=== PATIENT | female | born 1980 | race Caucasian/White ===

== ENCOUNTER 2020-04-06 14:27 | Observation (INO) | payer MEDICAID, SELFPAY ==
[2020-04-06 14:29] VITALS: BP 140/88; PULSE 92; TEMP 36.4; O2SAT 100
--- NOTE | 2020-04-06 14:48 | ED.GENADUL_ITS ---
Discharge Plan Disposition Patient Disposition: [facility] INPATIENT Condition: Stable Discharge Details Clinical Impression: Schizophrenia, Suicidal ideation Primary Care Provider: Lexi Sahu ED Provider: Victor M Tyson Home Meds and New Rx's Prescriptions: No Action cyproheptadine 4 MG tablet 12 mg PO HS RF: 0 clonidine HCl [Catapres] 0.1 MG tablet 0.1 mg PO DAILY PRN PRNRF: 0 clonidine HCl [Catapres] 0.1 MG tablet 0.1 mg PO TID RF: 0 hydroxyzine HCl 50 MG tablet 50 mg PO HS PRN PRNRF: 0 propranolol 10 MG tablet 5 mg PO Q4H PRN PRNRF: 0 lidocaine [Lidoderm] 1 PATCH adhesive patch,medicated 2 ea Topical .NOON RF: 0 perphenazine 4 MG tablet 8 mg PO HS RF: 0 perphenazine 4 MG tablet 4 mg PO BID RF: 0 perphenazine 4 MG tablet 4 mg PO Q6H PRN PRNRF: 0 nicotine 21 MG/24 HR patch 24 hour 21 mg Transdermal DAILY RF: 0 lactase 3,000 UNIT tablet 9,000 unit PO TID RF: 0 gabapentin 300 MG capsule 300 mg PO TID RF: 0 hydroxyzine HCl 25 MG tablet 25 mg PO Q4H PRN PRNRF: 0 furosemide 20 MG tablet 20 mg PO DAILY RF: 0 albuterol sulfate [Proventil HFA] 200 PUFF/INH HFA aerosol inhaler 2 puff Inhalation Q4H PRN PRNRF: 0 polyethylene glycol 3350 17 GM powder in packet 17 gr PO PRN PRNRF: 0 sumatriptan succinate [Imitrex] 25 MG tablet 25 mg PO PRN PRNRF: 0 calcium carbonate 600 MG tablet 600 mg PO DAILY RF: 0 buspirone 10 MG tablet 10 mg PO TID RF: 0 omeprazole 20 MG capsule,delayed release(DR/EC) 20 mg PO DAILY RF: 0 ibuprofen 600 MG tablet 600 mg PO PRN PRNRF: 0 fluticasone propion-salmeterol [Advair Diskus] 1 PUFF blister with device 1 puff PO BID RF: 0 Medical Decision Making Her [id number] female with a history of schizophrenia, bipolar disorder, borderline personality and PTSD. She has history of previous admissions to inpatient psychiatric facilities. She states she is not been taking her medications for 2 weeks, she has been homeless, and has had escalating auditory hallucinations that at times have commanded her to kill herself. She states she also has had thoughts of committing suicide by overdose, but does admit she currently has no medications. She arrives to ER via EMS who she called stating she was having a breakdown. Upon arrival, patient afebrile, blood pressure 140/88, normal oxygenation. Her thoughts are tangential at times, she appears to be responding to internal stimuli, she has swelling at staff but has not been physically aggressive Screening laboratories obtained as part of medical screening examination. Patient care observer was ordered and consultation with mental health screener requested. Patient stated she thought she would benefit from medication. I reviewed her records and previous dose of Trilafon 4 mg twice daily was ordered and patient was also given Ativan for anxiolysis. Positive tricyclic's in the urine and therefore an EKG was obtained & unremarkable. Labs are otherwise reassuring. Medical screening examination without acute medical findings. Patient stable for further psychiatric evaluation and interviewed by the mental health crisis screener. Referrals to be placed to [place] for inpatient placement. Lab Data Lab results reviewed: Yes I reviewed the patient's lab results. Labs: Laboratory Results - last 24 hr 04/06/20 04/06/20 04/06/20 14:50 14:50 15:10 WBC RBC Hgb Hct MCV MCH MCHC RDW Plt Count MPV Immature Gran % Neutrophils % Lymphocytes % Monocytes % Eosinophils % Basophils % Nucleated RBC % Absolute Neutrophils Absolute Lymphocytes Absolute Monocytes Absolute Eosinophils Absolute Basophils Sodium 138 Potassium 3.6 Chloride 104 Carbon Dioxide 27.9 Anion Gap 6.1 BUN 7 Creatinine 0.84 Estimated GFR/1.73 m2 >= 60.00 Glucose 122 H Calcium 9.1 Total Bilirubin 0.3 AST 19 ALT 34 Alkaline Phosphatase 115 Total Protein 7.0 Albumin 3.5 TSH 0.94 Urine Color Yellow Urine Clarity Clear Urine pH 6.0 Ur Specific [place] 1.020 Urine Protein Negative Urine Ketones Negative Urine Blood Negative Urine Nitrite Negative Urine Bilirubin Negative Urine Urobilinogen 0.2 Ur Leukocyte Esterase Negative Urine Glucose Negative Urine Opiates Screen Negative Urine Methadone Screen Negative Ur Barbiturates Screen Negative Ur Tricyclics Screen Positive A Ur Amphetamines Screen Negative U Benzodiazepines Scrn Negative Urine Cocaine Screen Positive A Ur THC Screen Positive A Ethyl Alcohol < 3.0 11/21/20 15:10 WBC 9.04 RBC 5.51 H Hgb 15.8 H Hct 47.3 H MCV 85.8 MCH 28.7 MCHC 33.4 RDW 11.5 L Plt Count 213 MPV 10.9 Immature Gran % 0.3 Neutrophils % 70.2 Lymphocytes % 23.9 Monocytes % 3.9 Eosinophils % 1.3 Basophils % 0.4 Nucleated RBC % 0 Absolute Neutrophils 6.34 Absolute Lymphocytes 2.16 Absolute Monocytes 0.35 Absolute Eosinophils 0.12 Absolute Basophils 0.04 Sodium Potassium Chloride Carbon Dioxide Anion Gap BUN Creatinine Estimated GFR/1.73 m2 Glucose Calcium Total Bilirubin AST ALT Alkaline Phosphatase Total Protein Albumin TSH Urine Color Urine Clarity Urine pH Ur Specific [place] Urine Protein Urine Ketones Urine Blood Urine Nitrite Urine Bilirubin Urine Urobilinogen Ur Leukocyte Esterase Urine Glucose Urine Opiates Screen Urine Methadone Screen Ur Barbiturates Screen Ur Tricyclics Screen Ur Amphetamines Screen U Benzodiazepines Scrn Urine Cocaine Screen Ur THC Screen Ethyl Alcohol HPI General Mode of arrival: ambulatory . Date/Time Provider Initiated Documentation: 04/06/20 15:00 . Limitations to Documentation: no limitations . Information obtained by: patient . History of Present Illness 39 year old F presents to the emergency department with the chief complaint of Not taking medications, auditory hallucinations, thoughts of suicide by OD, described as moderate and similar to prior episodes, Quality is described as constant, and is localized to the head. Patient reports no radiation. Patient started experiencing this week(s) and it has been constant. No relieving factors improve symptom(s), No exacerbating factors reported . Patient notes other (Denies to me recent illness. She has been homeless, not taking medications). Patient did receive the following treatments prior to arrival, none Related Data Home Medications Medication Instructions Recorded Confirmed buspirone 10 mg PO TID 06/28/16 11/09/17 calcium carbonate 600 mg PO DAILY 06/28/16 11/09/17 ibuprofen 600 mg PO PRN PRN 06/28/16 11/09/17 omeprazole 20 mg PO DAILY 06/28/16 11/09/17 polyethylene glycol 3350 17 gr PO PRN PRN 06/28/16 11/09/17 sumatriptan succinate [Imitrex] 25 mg PO PRN PRN 06/28/16 11/09/17 fluticasone propion-salmeterol 1 puff PO BID 06/29/16 11/09/17 [Advair Diskus] cyproheptadine 12 mg PO HS 07/13/16 11/09/17 albuterol sulfate [Proventil HFA] 2 puff INHALATION Q4H PRN PRN 11/09/17 11/09/17 clonidine HCl [Catapres] 0.1 mg PO DAILY PRN PRN 11/09/17 11/09/17 clonidine HCl [Catapres] 0.1 mg PO TID 11/09/17 11/09/17 furosemide 20 mg PO DAILY 11/09/17 11/09/17 gabapentin 300 mg PO TID 11/09/17 11/09/17 hydroxyzine HCl 25 mg PO Q4H PRN PRN 11/09/17 11/09/17 hydroxyzine HCl 50 mg PO HS PRN PRN 11/09/17 11/09/17 lactase 9,000 unit PO TID 11/09/17 11/09/17 lidocaine [Lidoderm] 2 ea TOPICAL .NOON 11/09/17 11/09/17 nicotine 21 mg TRANSDERMAL DAILY 11/09/17 11/09/17 perphenazine 4 mg PO BID 11/09/17 11/09/17 perphenazine 4 mg PO Q6H PRN PRN 11/09/17 perphenazine 8 mg PO HS 11/09/17 11/09/17 propranolol 5 mg PO Q4H PRN PRN 11/09/17 11/09/17 Allergies Allergy/AdvReac Type Severity Reaction Status Date / Time Fish Containing Products Allergy Severe Swelling/Ed Unverified 04/06/20 14:34 ximena General Stated Complaint: PsychEval YAIR: 2 Review of Systems Narrative: Not taking medications, feels suicidal at times with thoughts of overdose. States she has not seen her psychiatrist Dr. Jay. Feels she needs admission. States she has command hallucinations at times that tell her to kill her self. States to me she has not had recent illness. Denies cough or fever. 8 systems reviewed and otherwise negative [facility] Social History Smoking/Tobacco Use Status: Never Smoking risk assessment performed?: Yes Alcohol Intake: current Alcohol type: beer Drug use: Occasionally Substance use type: marijuana Do you feel safe in your relationship?: Yes Additional Social history: homeless History History Para 2 Hx # Term Pregnancies Multiple births Hx # Pregnancies Ectopic pregnancies AB induced Hx Number of Living Children AB spontaneous Exam Narrative Exam Narrative: GEN: awake, alert, agitated, intermittently swearing at staff HEAD: Normocephalic, atraumatic ENT: Mucous membranes moist, oropharynx unremarkable, External ear exam unremarkable EYES: PERRL, EOMI NECK: Full ROM, no MARÍA, no menigismus CHEST/RESP: Nontender, clear to auscultation bilateral, no wheeze/rhonchi/rales CARDIOVASCULAR: RRR, no murmur, rub minnie. 2+ Rad pulse bilateral ABDOMEN: Soft, nontender, no mass. +Bowel sounds EXT: Full ROM, no edema, no rash Neuro: Grossly normal neurologic exam, conversant, interactive. Psych: Speech fluent, thoughts tangential, affect is depressed and agitated, responds to internal stimuli Course Vital Signs Vital signs: Vital Signs Temperature 36.4 C L 04/06/20 14:29 Pulse 92 H 04/06/20 14:29 Blood Pressure 140/88 04/06/20 14:29 Pulse Oximetry 100 04/06/20 14:29 Temperature 36.4 C L 04/06/20 14:29 Temperature Source Temporal Artery Scan 04/06/20 14:29 Pulse 92 H 04/06/20 14:29 Respiratory Effort Non-Labored 04/06/20 14:32 Blood Pressure 140/88 04/06/20 14:29 Blood Pressure Position Sitting 04/06/20 14:29 Pulse Oximetry 100 04/06/20 14:29 Oxygen Delivery Method Room Air 04/06/20 14:29 Oxygen Flow Rate 0 04/06/20 14:29 Pain Level 0 04/06/20 14:29
[2020-04-06 14:59] LABS: Bilirubin Negative (Negative); Blood Negative (Negative); Clarity Clear (Clear); Glucose Negative (Negative); Ketones Negative (Negative); Leukocyte Esterase Negative (Negative); Nitrite Negative (Negative); Urobilinogen 0.2 EU/dL (Up TO 0.2)
[2020-04-06 15:15] LABS: *AMPHETAMINES SCREEN URINE Negative (Negative); *BARBITURATES SCREEN URINE Negative (Negative); *BENZODIAZEPINES SCREEN URINE Negative (Negative); Cannabinoids THC POSITIVE (Negative); Cocaine Screen,Urine POSITIVE (Negative); METHADONE URINE SCREEN Negative (Negative); OPIATES URINE SCREEN Negative (Negative)
[2020-04-06] MEDS: LORazepam 1 MG TAB 2 MG PO ×2 (15:16→15:17)
[2020-04-06] MEDS: Perphenazine 2 MG TABLET 4 MG PO (15:28)
[2020-04-06 15:35] LABS: Abs Immature Grans 0.03 10^3/uL (0.0-0.06); Absolute Basophil Count 0.04 10^3/uL (0.0-0.2); Absolute Eosinophil Count 0.12 10^3/uL (0.0-0.7); Absolute Lymphocyte Count 2.16 10^3/uL (1.2-3.4); Absolute Monocyte Count 0.35 10^3/uL (0.1-0.8); Absolute Neutrophil Count 6.34 10^3/uL (1.2-6.7); Basophils % 0.4; Eosinophils % 1.3; HCT 47.3 % (36.0-46.0); HGB 15.8 g/dL (11.2-15.7); Immature Grans % 0.3; Lymphocytes % 23.9; MCH 28.7 pg (27.0-33.0); MCHC 33.4 % (32.0-36.0); MCV 85.8 fL (80-95); MPV 10.9 fL (8.0-11.0); Monocytes % 3.9; Neutrophils % 70.2; Nucleated RBC 0 %; Platelet Count 213 10^3/uL (130-400); RBC 5.51 10^6/uL (3.93-5.22); RDW 11.5 % (11.7-14.6); RDW-SD 36.3 fL; WBC 9.04 10^3/uL (4.4-10.8)
[2020-04-06 15:36] LABS: Tricyclic Antidepressants POSITIVE (Negative)
--- NOTE | 2020-04-06 15:45 | RT.EKG_ITS ---
APPROVED REPORT Exam: Resting ECG Patient Location: E HR:82 bpm ECG Measurements Heart Rate 82 AXIS VA 117 P 45 QRSd 82 QRS 58 QT 359 T 50 QTc 418 Conclusion Sinus rhythm...normal P axis, V-rate 60- 99
[2020-04-06 15:46] LABS: ALT 34 U/L (14-59); AST 19 U/L (15-37); Albumin 3.5 g/dL (3.4-5.0); Alkaline Phosphatase 115 U/L (46-116); Anion Gap 6.1 mmol/L (3-11); BUN 7 mg/dL (7-18); Bilirubin, Total 0.3 mg/dL (0.2-1.0); CO2 27.9 mmol/L (21.0-32.0); CREATININE 0.84 mg/dL (0.55-1.02); Calcium 9.1 mg/dL (8.5-10.1); Chloride 104 mmol/L (98-107); ETHANOL BLOOD < 3.0 mg/dL (<3); Glucose 122 mg/dL (74-106); Potassium 3.6 mmol/L (3.5-5.1); Sodium 138 mmol/L (136-145); TSH 0.94 uIU/mL (0.36-3.74)
--- NOTE | 2020-04-06 15:48 | NUR.NOTE ---
urinated in bed and it went onto the floor. provided with clean paper scrubs and linens to change bed and wash up. floor mopped
[2020-04-06 16:10] LABS: Salicylate 5.2 mg/dL (2.8-20.0)
--- NOTE | 2020-04-06 16:21 | NUR.NOTE ---
talking with screener via ipad
--- NOTE | 2020-04-06 16:28 | NUR.NOTE ---
the mental health screener called to say Liudmila had placed down the tablet. I went in and Liudmila had her eyes shut, stating she was having a hard time focusing and states I am incoherent explained the screener could not help place her if she did not talk. She grabbed ipad, opened eyes and screamed what do you want? obviously I need to be placed!she is talking with screener.
[2020-04-06 16:34] LABS: Acetaminophen < 2 ug/mL (10-30)
--- NOTE | 2020-04-06 16:49 | NUR.NOTE ---
requested and given additional sandwich
--- NOTE | 2020-04-06 17:13 | NUR.NOTE ---
pt stated she did not know her medications on arrival.
--- NOTE | 2020-04-06 17:24 | PDOC.CMSAFED ---
- If Service Date Differs Date of service: 04/06/20 Time of Service: 17:24
--- NOTE | 2020-04-06 17:34 | PDOC.CMSAFED ---
- If Service Date Differs Date of service: 04/06/20 Time of Service: 17:34 Care Management Safety Plan Liudmila is a 39 year old woman with a history of schizophrenia, bipolar disorder, borderline personality and PTSD. She presented to the ED stating that she is hearing voices that are telling her to kill herself. She states that she would do this by overdosing on medication, although she claims that she has no meds and has not taken any for 2 weeks. Liudmila has had several inpatient psychiatric admissions, most recently at [facility]. She is currently homeless and lists her male friend and her mother as contacts. . She is seeking voluntary inpatient psychiatric treatment. She was seen by CHILO Bernabe Crisis screener who will send referrals to [place] and a few other facilities. VOLUNTARY FOR INPATIENT PSYCHIATRIC STABILIZATION. Patient is appropriate in all interactions since arriving at [facility]; Pt has demonstrated appropriate coping and communication skills, has articulated his or her needs and concerns and is fully engaged during staff interactions. Safety plan has been established with patient, and care team, to adhere to patient goals, identify restrictions based on behavioral status, address nutrition, and determine allowed personal belongings, tools for hygiene and personal care. Determine level of activity including ambulation, level of supervision, visitors, and determine privileges based on behaviors and level of engagement by pt. SAFETY PLAN: 1. Will remain on suicide precautions. In Paper Clothes 2. Will remain in room under direct supervision of one-on-one staff at all times provided by [employer]; VENECIA, EVENT PLANNING MANAGER grid casting machine operator helper. 3. May have paper cups, plates, finger foods as well as a cardboard spoon with which to eat meals. 4. Follow [facility] Management of the Admitted Behavioral Health Patient policy. 5. Comfort bath system only. 6. No personal belongings 7. Visitors-No visitors at this time 8. Activities: May watch TV if available and use coloring materials and soft objects from the activity cart. 9. Bathroom privileges 10. Phone: No phone privileges at this time. 11. Due to VOLUNTARY status, if patient wishes to leave [facility], the [facility] ironworker machine operator must be contacted to re-evaluate patient prior to patient exiting the building. Patient is currently voluntarily at [facility] and seeking inpatient admission when a bed becomes available. [facility] Frontline Power Plant Engineer will continue seeking placement. Please contact the Environmental Systems Coordinator Tread Builder ([phone]) and [facility] Power Plant Engineer ([phone]) for any needed changes in the Safety Plan. Safety plan has been provided to interdepartmental care team.
--- NOTE | 2020-04-06 18:02 | W.PM.HP.N ---
Date of service: 04/06/20 Time of Service: 18:02 Assessment and Plan Assessment and plan (1) Schizophrenia: Status: Acute Assessment and plan: Psychosis apparently secondary to med noncompliance. We do not have any current med info and with multiple drugs in system I am disinclined to place on any fixed regimen at the moment. Will treat symptomatically with prn Trilafon or Ativan pending transfer. As to TCA in UDS will watch on telemetry overnight though EKG is reassuring. History of Present Illness History of Present Illness Chief Complaint: psychosis Narrative: 39 female with h/o schizophrenia and multiple psychiatric dxx. Comes to ER stating she has not taken her meds in 2 weeks, is having command hallucinations regarding self harm. In ERpatien inmitially agitated, given 4 mg Trilafon )n previously per 2018 record) and Ativan 2 mg. Has calmed down and is now sedated. Here voluntarily pending transfer to facility. Medical w/u negative with exception of UDS + for cocaine, THC and TCAs. EKG WNL. Review of Systems Unobtainable due to mental status [facility] Social History Smoking/Tobacco Use Status: Never Smoking risk assessment performed?: Yes Alcohol Intake: current Alcohol type: beer Drug use: Occasionally Substance use type: marijuana Do you feel safe in your relationship?: Yes Additional Social history: homeless History History Para 2 Hx # Term Pregnancies Multiple births Hx # Pregnancies Ectopic pregnancies AB induced Hx Number of Living Children AB spontaneous Meds Home Medications and Allergies Home Medications Medication Instructions Recorded Confirmed Type buspirone 10 mg PO TID 06/28/16 11/09/17 History calcium carbonate 600 mg PO DAILY 06/28/16 11/09/17 History ibuprofen 600 mg PO PRN PRN 06/28/16 11/09/17 History omeprazole 20 mg PO DAILY 06/28/16 11/09/17 History polyethylene glycol 3350 17 gr PO PRN PRN 06/28/16 11/09/17 History sumatriptan succinate [Imitrex] 25 mg PO PRN PRN 06/28/16 11/09/17 History fluticasone propion-salmeterol 1 puff PO BID 06/29/16 11/09/17 History [Advair Diskus] cyproheptadine 12 mg PO HS 07/13/16 11/09/17 History albuterol sulfate [Proventil HFA] 2 puff INHALATION Q4H PRN PRN 11/09/17 11/09/17 History clonidine HCl [Catapres] 0.1 mg PO DAILY PRN PRN 11/09/17 11/09/17 History clonidine HCl [Catapres] 0.1 mg PO TID 11/09/17 11/09/17 History furosemide 20 mg PO DAILY 11/09/17 11/09/17 History gabapentin 300 mg PO TID 11/09/17 11/09/17 History hydroxyzine HCl 25 mg PO Q4H PRN PRN 11/09/17 11/09/17 History hydroxyzine HCl 50 mg PO HS PRN PRN 11/09/17 11/09/17 History lactase 9,000 unit PO TID 11/09/17 11/09/17 History lidocaine [Lidoderm] 2 ea TOPICAL .NOON 11/09/17 11/09/17 History nicotine 21 mg TRANSDERMAL DAILY 11/09/17 11/09/17 History perphenazine 4 mg PO BID 11/09/17 11/09/17 History perphenazine 4 mg PO Q6H PRN PRN 11/09/17 History perphenazine 8 mg PO HS 11/09/17 11/09/17 History propranolol 5 mg PO Q4H PRN PRN 11/09/17 11/09/17 History Allergies Allergy/AdvReac Type Severity Reaction Status Date / Time Fish Containing Products Allergy Severe Swelling/Ed Unverified 04/06/20 14:34 ximena Exam Narrative Exam Narrative: 140/88, 92, 36.4, 16, 100% RA. HEENT atraumatic; neck supple; lungs clear; heart RRR; abdomen soft and NT; extremities w/o edema; neuro somnolent, but cooperates with exam, moves all 4s Results Labs Result diagrams: 04/06/20 15:10 04/06/20 15:10 Labs: Laboratory Results - last 24 hr 04/06/20 04/06/20 04/06/20 14:50 14:50 15:10 WBC RBC Hgb Hct MCV MCH MCHC RDW Plt Count MPV Immature Gran % Neutrophils % Lymphocytes % Monocytes % Eosinophils % Basophils % Nucleated RBC % Absolute Neutrophils Absolute Lymphocytes Absolute Monocytes Absolute Eosinophils Absolute Basophils Sodium 138 Potassium 3.6 Chloride 104 Carbon Dioxide 27.9 Anion Gap 6.1 BUN 7 Creatinine 0.84 Estimated GFR/1.73 m2 >= 60.00 Glucose 122 H Calcium 9.1 Total Bilirubin 0.3 AST 19 ALT 34 Alkaline Phosphatase 115 Total Protein 7.0 Albumin 3.5 TSH 0.94 Urine Color Yellow Urine Clarity Clear Urine pH 6.0 Ur Specific [place] 1.020 Urine Protein Negative Urine Ketones Negative Urine Blood Negative Urine Nitrite Negative Urine Bilirubin Negative Urine Urobilinogen 0.2 Ur Leukocyte Esterase Negative Urine Glucose Negative Salicylates Urine Opiates Screen Negative Urine Methadone Screen Negative Acetaminophen Ur Barbiturates Screen Negative Ur Tricyclics Screen Positive A Ur Amphetamines Screen Negative U Benzodiazepines Scrn Negative Urine Cocaine Screen Positive A Ur THC Screen Positive A Ethyl Alcohol < 3.0 04/06/20 04/06/20 15:10 15:10 WBC 9.04 RBC 5.51 H Hgb 15.8 H Hct 47.3 H MCV 85.8 MCH 28.7 MCHC 33.4 RDW 11.5 L Plt Count 213 MPV 10.9 Immature Gran % 0.3 Neutrophils % 70.2 Lymphocytes % 23.9 Monocytes % 3.9 Eosinophils % 1.3 Basophils % 0.4 Nucleated RBC % 0 Absolute Neutrophils 6.34 Absolute Lymphocytes 2.16 Absolute Monocytes 0.35 Absolute Eosinophils 0.12 Absolute Basophils 0.04 Sodium Potassium Chloride Carbon Dioxide Anion Gap BUN Creatinine Estimated GFR/1.73 m2 Glucose Calcium Total Bilirubin AST ALT Alkaline Phosphatase Total Protein Albumin TSH Urine Color Urine Clarity Urine pH Ur Specific [place] Urine Protein Urine Ketones Urine Blood Urine Nitrite Urine Bilirubin Urine Urobilinogen Ur Leukocyte Esterase Urine Glucose Salicylates 5.2 Urine Opiates Screen Urine Methadone Screen Acetaminophen < 2 Ur Barbiturates Screen Ur Tricyclics Screen Ur Amphetamines Screen U Benzodiazepines Scrn Urine Cocaine Screen Ur THC Screen Ethyl Alcohol Last Vital Signs Temp 36.4 C L 04/06/20 14:29 Pulse 92 H 04/06/20 14:29 BP 140/88 04/06/20 14:29 Pulse Ox 100 04/06/20 14:29
--- NOTE | 2020-04-06 19:45 | NUR.NOTE ---
placed on portable telemetry, all cords able to remove, were taken out of room
[2020-04-06 19:47] VITALS: PULSE 86; RESP 22
--- NOTE | 2020-04-06 20:56 | NUR.NOTE ---
report to NESHA Ro
[2020-04-06 21:21] VITALS: PULSE 83; RESP 16
--- NOTE | 2020-04-07 | DI.RAD_ITS ---
EXAM: XR PORTABLE CHEST AP CLINICAL HISTORY: febrile TECHNIQUE: 2D digital imaging was performed. COMPARISON: No exams were available for comparison FINDINGS: LUNGS: Suboptimal pulmonary inflation. Minimal linear atelectasis or scarring the left lower lung fi eld.. No pleural abnormality seen. HEART: Normal. MEDIASTINUM: Normal. OTHER FINDINGS: None. IMPRESSION: No acute pulmonary findings. DATA REPOSITORY: RADIATION DOSE DELIVERED:
[2020-04-07 03:36] VITALS: BP 118/79; PULSE 77
[2020-04-07] MEDS: LORazepam 1 MG TAB (03:43)
[2020-04-07] MEDS: LORazepam 0.5 MG TAB 1 MG PO ×2 (03:43→09:26)
[2020-04-07 05:00] VITALS: BP 90/62; PULSE 77; RESP 16; TEMP 36.2; O2SAT 95
[2020-04-07 07:00] VITALS: PULSE 78
[2020-04-07] MEDS: Perphenazine 2 MG TABLET 4 MG PO ×2 (08:44→12:09)
--- NOTE | 2020-04-07 10:23 | CMSP_ITS ---
- If Service Date Differs Date of service: 04/07/20 Time of Service: 10:23 Care Management Safety Plan VOLUNTARY FOR INPATIENT PSYCHIATRIC STABILIZATION. Patient is appropriate in all interactions since arriving at [facility]; Pt has demonstrated appropriate coping and communication skills, has articulated his or her needs and concerns and is fully engaged during staff interactions. Safety plan has been established with patient, and care team, to adhere to pa tient goals, identify restrictions based on behavioral status, address nutrition, and determine allowed personal belongings, tools for hygiene and personal care. Determine level of activity including ambulation, level of supervision, visitors, and determine privileges based on behaviors and level of engagement by pt. SAFETY PLAN: 1. Will remain on suicide precautions. In Paper Clothes 2. Will remain in room under direct supervision of one-on-one staff at all times provided by [employer]; VENECIA, RFID MANAGER dairy worker. 3. May have paper cups, plates, finger foods as well as a cardboard spoon with which to eat meals. 4. Follow [facility] Management of the Admitted Behavioral Health Patient policy. 5. Comfort bath system only. When out of isolation may shower with supervision at nursing's discretion. 6. No personal belongings 7. Visitors-No visitors at this time 8. Activities: May watch TV if available and use coloring materials and soft objects from the activity cart. 9. Bathroom privileges 10. Phone: No phone privileges at this time. 11. Due to VOLUNTARY status, if patient wishes to leave [facility], the [facility] life skills worker must be contacted to re-evaluate patient prior to patient exiting the building. Patient is currently voluntarily at [facility] and seeking inpatient admission when a bed becomes available. [facility] Frontline Reconciliation Coordinator will continue seeking diana cement. Please contact the [employer] Hand Account Administrator ([phone]) and [facility] Reconciliation Coordinator ([phone]) for any needed changes in the Safety Plan. Safety plan has been provided to interdepartmental care team.
--- NOTE | 2020-04-07 10:23 | PDOC.CMSAFE ---
- If Service Date Differs Date of service: 04/07/20 Time of Service: 10:23 Care Management Safety Plan VOLUNTARY FOR INPATIENT PSYCHIATRIC STABILIZATION. Patient is appropriate in all interactions since arriving at [facility]; Pt has demonstrated appropriate coping and communication skills, has articulated his or her needs and concerns and is fully engaged during staff interactions. Safety plan has been established with patient, and care team, to adhere to patient goals, identify restrictions based on behavioral status, address nutrition, and determine allowed personal belongings, tools for hygiene and personal care. Determine level of activity including ambulation, level of supervision, visitors, and determine privileges based on behaviors and level of engagement by pt. SAFETY PLAN: 1. Will remain on suicide precautions. In Paper Clothes 2. Will remain in room under direct supervision of one-on-one staff at all times provided by [employer]; VENECIA, DIRECTOR OF ANESTHESIA SERVICES binder folder operator. 3. May have paper cups, plates, finger foods as well as a cardboard spoon with which to eat meals. 4. Follow [facility] Management of the Admitted Behavioral Health Patient policy. 5. Comfort bath system only. When out of isolation may shower with supervision at nursing's discretion. 6. No personal belongings 7. Visitors-No visitors at this time 8. Activities: May watch TV if available and use coloring materials and soft objects from the activity cart. 9. Bathroom privileges 10. Phone: No phone privileges at this time. 11. Due to VOLUNTARY status, if patient wishes to leave [facility], the [facility] hollow handle bench worker must be contacted to re-evaluate patient prior to patient exiting the building. Patient is currently voluntarily at [facility] and seeking inpatient admission when a bed becomes available. [facility] Frontline Visual Associate will continue seeking placement. Please contact the Corncob Pipe Manufacturing Supervisor Paper Baling Machine Operator ([phone]) and [facility] Visual Associate ([phone]) for any needed changes in the Safety Plan. Safety plan has been provided to interdepartmental care team.
--- NOTE | 2020-04-07 10:24 | PDOC.CMPRO ---
- If Service Date Differs Date of service: 04/07/20 Time of Service: 10:24 Care Management Progress Note S/O: Liudmila was laying on her stretcher when CM met with her. CM was asked to come to the room because Liudmila had stripped off all of her clothes and was naked under her covers. She was calling out to her voices to stop bothering her. She explained to CM that they were directing her to masturbate and she was trying to resist. She asked for medication. She had received Ativan about 2 hours earlier and it was ordered Q4h prn. CM contacted the provider who ordered a stat dose of Ativan then completed the medication reconciliation. Several of Liudmila's anti-psychotic meds had not been ordered and she stated she needed them. By early afternoon she received all necessary medications and stated that she was feeling better. Unfortunately, she developed a fever and cough, so was moved into a negative pressure room until her Covid test results are known. During her meeting with [facility], Liudmila answered questions and was appropriate and cooperative. She remained compliant all day, although at times she shared that the voices inside her agitated her. A: Liudmila is a 39 year old woman admitted on 04/06/20 with schizophrenia and suicidal ideation P: Liudmila is seeking voluntary placement in an inpatient psychiatric facility. [facility]. VOLUNTARY FOR INPATIENT PSYCHIATRIC STABILIZATION. Patient is appropriate in all interactions since arriving at [facility]; Pt has demonstrated appropriate coping and communication skills, has articulated his or her needs and concerns and is fully engaged during staff interactions. Safety plan has been established with patient, and care team, to adhere to patient goals, identify restrictions based on behavioral status, address nutrition, and determine allowed personal belongings, tools for hygiene and personal care. Determine level of activity including ambulation, level of supervision, visitors, and determine privileges based on behaviors and level of engagement by pt. SAFETY PLAN: 1. Will remain on suicide precautions. In Paper Clothes 2. Will remain in room under direct supervision of one-on-one staff at all times provided by [employer]; VENECIA, SWEATBAND FLANGER loss prevention coordinator. 3. May have paper cups, plates, finger foods as well as a cardboard spoon with which to eat meals. 4. Follow [facility] Management of the Admitted Behavioral Health Patient policy. 5. May shower with staff supervision when off isolation 6. No personal belongings 7. Visitors-No visitors at this time 8. Activities: May watch TV if available and use coloring materials and soft objects from the activity cart. 9. Bathroom privileges 10. Phone: No phone privileges at this time. 11. Due to VOLUNTARY status, if patient wishes to leave [facility], the [facility] neon sign worker must be contacted to re-evaluate patient prior to patient exiting the building. Patient is currently voluntarily at [facility] and seeking inpatient admission when a bed becomes available. [facility] Frontline Solderer will continue seeking placement. Please contact the Collective Bargaining Specialist Accounting Clerk ([phone]) and [facility] Solderer ([phone]) for any needed changes in the Safety Plan. Safety plan has been provided to interdepartmental care team. cc:
--- NOTE | 2020-04-07 10:24 | W.PM.PROGNOT ---
Date of Service Date of service: 04/07/20 Time of Service: 10:24 Assessment and Plan Assessment and plan (1) Schizophrenia: Start date: 04/07/20 Start time: : Status: Acute Assessment and plan: Psychosis apparently secondary to med noncompliance per patient she was on trazadone and mirtazapime and she felt they made her symptoms worse therefore she quit taking them. She was being seen by [facility]. Ativan as needed for anxiety. She is voluntary for admission. She is also c/o back pain will give toradol for pain as needed. Qualifiers: Schizophrenia type: unspecified Qualified Code(s): F20.9 - Schizophrenia, unspecified Subjective Subjective Patient reports: other Interval history since last seen: continues to have scattered thoughts. However not SI or HI. cooperative and pleasant this am. She is c/o back pain will give ketoralac for pain. HR with RRR no arrythmia. She has been medically cleared. Voluntary for admission she has cpso and moved to transition unit. Exam Narrative Exam Narrative: calm cooperative, continues to have scattered thoughts. HEENT atraumatic; neck supple; lungs clear; heart RRR; abdomen soft and NT; extremities w/o edema; neuro AAOx3, moves all 4s Objective Last Vital Signs Temp 36.2 C L 04/07/20 05:00 Pulse 78 04/07/20 07:00 Resp 16 04/07/20 05:00 BP 90/62 L 04/07/20 05:00 Pulse Ox 95 04/07/20 05:00 Laboratory Results - last 24 hr 04/06/20 04/06/20 04/06/20 14:50 14:50 15:10 WBC RBC Hgb Hct MCV MCH MCHC RDW Plt Count MPV Immature Gran % Neutrophils % Lymphocytes % Monocytes % Eosinophils % Basophils % Nucleated RBC % Absolute Neutrophils Absolute Lymphocytes Absolute Monocytes Absolute Eosinophils Absolute Basophils Sodium 138 Potassium 3.6 Chloride 104 Carbon Dioxide 27.9 Anion Gap 6.1 BUN 7 Creatinine 0.84 Estimated GFR/1.73 m2 >= 60.00 Glucose 122 H Calcium 9.1 Total Bilirubin 0.3 AST 19 ALT 34 Alkaline Phosphatase 115 Total Protein 7.0 Albumin 3.5 TSH 0.94 Urine Color Yellow Urine Clarity Clear Urine pH 6.0 Ur Specific [place] 1.020 Urine Protein Negative Urine Ketones Negative Urine Blood Negative Urine Nitrite Negative Urine Bilirubin Negative Urine Urobilinogen 0.2 Ur Leukocyte Esterase Negative Urine Glucose Negative Salicylates Urine Opiates Screen Negative Urine Methadone Screen Negative Acetaminophen Ur Barbiturates Screen Negative Ur Tricyclics Screen Positive A Ur Amphetamines Screen Negative U Benzodiazepines Scrn Negative Urine Cocaine Screen Positive A Ur THC Screen Positive A Ethyl Alcohol < 3.0 04/06/20 04/06/20 15:10 15:10 WBC 9.04 RBC 5.51 H Hgb 15.8 H Hct 47.3 H MCV 85.8 MCH 28.7 MCHC 33.4 RDW 11.5 L Plt Count 213 MPV 10.9 Immature Gran % 0.3 Neutrophils % 70.2 Lymphocytes % 23.9 Monocytes % 3.9 Eosinophils % 1.3 Basophils % 0.4 Nucleated RBC % 0 Absolute Neutrophils 6.34 Absolute Lymphocytes 2.16 Absolute Monocytes 0.35 Absolute Eosinophils 0.12 Absolute Basophils 0.04 Sodium Potassium Chloride Carbon Dioxide Anion Gap BUN Creatinine Estimated GFR/1.73 m2 Glucose Calcium Total Bilirubin AST ALT Alkaline Phosphatase Total Protein Albumin TSH Urine Color Urine Clarity Urine pH Ur Specific [place] Urine Protein Urine Ketones Urine Blood Urine Nitrite Urine Bilirubin Urine Urobilinogen Ur Leukocyte Esterase Urine Glucose Salicylates 5.2 Urine Opiates Screen Urine Methadone Screen Acetaminophen < 2 Ur Barbiturates Screen Ur Tricyclics Screen Ur Amphetamines Screen U Benzodiazepines Scrn Urine Cocaine Screen Ur THC Screen Ethyl Alcohol
[2020-04-07] MEDS: Ketorolac 10 MG TAB PO ×3 (10:52→20:30)
[2020-04-07] MEDS: Omeprazole 20 MG CAPCR PO (12:10)
[2020-04-07] MEDS: LORazepam 1 MG TAB 2 MG PO (12:10)
[2020-04-07] MEDS: cloNIDine 0.1 MG TAB PO (12:10)
[2020-04-07] MEDS: busPIRone 5 MG TAB 10 MG PO (12:10)
[2020-04-07] MEDS: Budesonide/Formoterol 160/4.5 6 GM 60 PUFF INH IH ×2 (13:30→20:02)
[2020-04-07 13:39] VITALS: BP 93/64; PULSE 83; RESP 20; TEMP 37.5; O2SAT 95
[2020-04-07 14:23] LABS: Abs Immature Grans 0.02 10^3/uL (0.0-0.06); Absolute Basophil Count 0.04 10^3/uL (0.0-0.2); Absolute Eosinophil Count 0.09 10^3/uL (0.0-0.7); Absolute Lymphocyte Count 2.18 10^3/uL (1.2-3.4); Absolute Monocyte Count 0.28 10^3/uL (0.1-0.8); Absolute Neutrophil Count 4.97 10^3/uL (1.2-6.7); Basophils % 0.5; Eosinophils % 1.2; HGB 14.9 g/dL (11.2-15.7); Immature Grans % 0.3; Lymphocytes % 28.8; MCH 28.9 pg (27.0-33.0); MCHC 34.7 % (32.0-36.0); MCV 83.5 fL (80-95); MPV 10.5 fL (8.0-11.0); Monocytes % 3.7; Neutrophils % 65.5; Nucleated RBC 0 %; Platelet Count 199 10^3/uL (130-400); RBC 5.15 10^6/uL (3.93-5.22); RDW 11.4 % (11.7-14.6); RDW-SD 34.8 fL; WBC 7.58 10^3/uL (4.4-10.8)
[2020-04-07 14:34] LABS: Anion Gap 5.6 mmol/L (3-11); BUN 9 mg/dL (7-18); CO2 27.4 mmol/L (21.0-32.0); CREATININE 0.67 mg/dL (0.55-1.02); Calcium 8.9 mg/dL (8.5-10.1); Chloride 104 mmol/L (98-107); Glucose 105 mg/dL (74-106); Potassium 4.1 mmol/L (3.5-5.1); Sodium 137 mmol/L (136-145)
[2020-04-07 14:55] LABS: Bilirubin Negative (Negative); Blood Negative (Negative); Clarity Clear (Clear); Glucose Negative (Negative); Ketones Negative (Negative); Leukocyte Esterase Negative (Negative); Nitrite Negative (Negative); pH 8.5 (5-8)
[2020-04-07 15:06] LABS: Procalcitonin < 0.1 ng/mL
[2020-04-07 15:11] LABS: COVID-19 RT-PCR UVMMC Result Negative (Negative)
--- NOTE | 2020-04-07 15:12 | DI.VRAD_ITS ---
PROCEDURE INFORMATION: Exam: XR Chest, 1 View Exam date and time: 04/07/2020 2:57 PM Age: 39 years old Clinical indication: Other: Febrile TECHNIQUE: Imaging protocol: XR of the chest Views: 1 view. COMPARISON: No relevant prior studies available. FINDINGS: Lungs: Discoid atelectasis in the left base . No focal consolidation Pleural space: Unremarkable. No pleural effusion. No pneumothorax. Heart/Mediastinum: Unremarkable. No cardiomegaly. Bones/joints: Unremarkable. IMPRESSION: No focal consolidation Dictated and Authenticated by: Ifeanyi Erazo MD. Ordering:YUDITH Echeverria MD
--- NOTE | 2020-04-07 17:13 | NUR.NOTE ---
Nursing Note: 04/07/20 1710- pt finishing her dinner of mashed potato and burger when third tooth on right front from middle broke on lateral side. tooth retrieved from mouth by patient. Notified RN.
[2020-04-07] MEDS: ARIPiprazole 5 MG TAB 10 MG PO (18:05)
[2020-04-07] MEDS: LORazepam 1 MG TAB PO (20:01)
[2020-04-07] MEDS: OLANZapine 10 MG TAB 20 MG PO (20:30)
[2020-04-07] MEDS: Cyproheptadine 4 MG TAB PO (20:31)
[2020-04-07 20:37] VITALS: BP 106/68; PULSE 68; RESP 18; TEMP 36.1; O2SAT 95
[2020-04-08] MEDS: OLANZapine 10 MG TAB PO (05:13)
[2020-04-08] MEDS: ARIPiprazole 5 MG TAB 10 MG PO ×2 (05:13→14:10)
[2020-04-08] MEDS: Omeprazole 20 MG CAPCR PO (09:18)
[2020-04-08] MEDS: Ketorolac 10 MG TAB PO ×2 (09:18→14:11)
[2020-04-08] MEDS: Budesonide/Formoterol 160/4.5 6 GM 60 PUFF INH IH (09:18)
[2020-04-08] MEDS: LORazepam 1 MG TAB PO ×3 (09:18→16:48)
[2020-04-08 09:22] VITALS: BP 107/71; PULSE 84; RESP 18; TEMP 36.6; O2SAT 98
--- NOTE | 2020-04-08 10:49 | W.NUTRFU ---
Date of service: 04/08/20 Time of Service: 10:49 Nutritional Follow up NOTE: Liudmila admitted with suicidal ideation. Following regular meal plan with excellent intake. Not at nutritional risk at this time. Will continue to follow. Time Spent in Nutritional Counseling and Treatment: 0
[2020-04-08] MEDS: Nicotine 4 MG GUM CH (12:01)
--- NOTE | 2020-04-08 12:40 | PHACLINREV_ITS ---
Pharmacy Admission Review - Admission Clinical Review (Last Reviewed 04/06/20 @ 18:06 by Pawel Sweeney MD) Schizophrenia (Acute) Suicidal ideation (Acute) Fish Containing Products Allergy (Severe, Unverified 04/06/20 14:34) Swelling/Edema Height 5 ft 5 in Weight 103.7 kg - Renal Dosing Renal Dosing: BUN 9 mg/dL (7-18) 04/07/20 14:10 Creatinine 0.67 mg/dL (0.55-1.02) 04/07/20 14:10 Medications needing adjustments: Reviewed (Crcl over 100 mL/min using adjusted body weight, current meds okay.) - Anticoagulation Anticoagulation: Hgb 14.9 g/dL (11.2-15.7) 04/07/20 14:10 Hct 43.0 % (36.0-46.0) 04/07/20 14:10 Plt Count 199 10^3/uL (130-400) 04/07/20 14:10 Creatinine 0.67 mg/dL (0.55-1.02) 04/07/20 14:10 DVT Prohphylaxis: N/A Therapeutic Anticoagulation: N/A - Opiate Usage Evaluate Pain Scale/Pains Meds: N/A - Relevant Labs Sodium 137 mmol/L (136-145) 04/07/20 14:10 Potassium 4.1 mmol/L (3.5-5.1) 04/07/20 14:10 Chloride 104 mmol/L (98-107) 04/07/20 14:10 Electrolytes, C-Reactive P, ESR: Reviewed - DM Control DM Control: Glucose 105 mg/dL (74-106) 04/07/20 14:10 Insulin Dosing: N/A - Heart Failure/MN EF%, MANI's, B-Blockers, Diuretics: N/A - BP Control BP Control: Blood Pressure 107/71 If elevated: N/A - Qtc Review If Elevated: N/A (QTc 418) - IV to PO Switch IV Medications: Reviewed - Home Meds Home Med List reviewed: Reviewed (Provider reviewed med list. Multiple CIVIL ENGINEER LAND DEVELOPMENT depressants: aripiprazole, cyproheptadine, lorazepam, olanzapine.) Relevent Home Meds Not ordered & why?: albuterol, lactase - Current meds Current Medication Order Review: Intervened (Adjusted timing of omeprazole per medication administration time policy.) - Comments Comments/Follow Ups: Watch Vs, labs and for med changes. Also watch PO ketorolac dosing (max dose 40 mg/day and max duration of 5 days)
--- NOTE | 2020-04-08 14:42 | PDOC.CMSAFE ---
- If Service Date Differs Date of service: 04/08/20 Time of Service: 14:42 Care Management Safety Plan 04/08/2020 VOLUNTARY FOR INPATIENT PSYCHIATRIC STABILIZATION. Patient is appropriate in all interactions since arriving at [facility]; Pt has demonstrated appropriate coping and communication skills, has articulated his or her needs and concerns and is fully engaged during staff interactions. Safety plan has been established with patient, and care team, to adhere to patient goals, identify restrictions based on behavioral status, address nutrition, and determine allowed personal belongings, tools for hygiene and personal care. Determine level of activity including ambulation, level of supervision, visitors, and determine privileges based on behaviors and level of engagement by pt. SAFETY PLAN: 1. Will remain on suicide precautions. In Paper Clothes 2. Will remain in room under direct supervision of one-on-one staff at all times provided by [employer]; VENECIA, LINEMAN A CLASS director of automation. 3. May have paper cups, plates, finger foods as well as a cardboard spoon with which to eat meals. 4. Follow [facility] Management of the Admitted Behavioral Health Patient policy. 5. Comfort bath system only. When out of isolation may shower with supervision at nursing's discretion. 6. No personal belongings 7. Visitors-No visitors at this time 8. Activities: May watch TV if available and use coloring materials and soft objects from the activity cart. 9. Bathroom privileges 10. Phone: No phone privileges at this time. 11. Due to VOLUNTARY status, if patient wishes to leave [facility], the [facility] photofinishing laboratory worker must be contacted to re-evaluate patient prior to patient exiting the building. Patient is currently voluntarily at [facility] and seeking inpatient admission when a bed becomes available. [facility] Frontline Broadcast Operations Manager will continue seeking placement. Please contact the Ordnance Engineer Wire Taper ([phone]) and [facility] Broadcast Operations Manager ([phone]) for any needed changes in the Safety Plan. Safety plan has been provided to interdepartmental care team.
--- NOTE | 2020-04-08 16:14 | DSE_ITS ---
Date of service: 04/08/20 Time of Service: 16:15 DS: Diagnosis Discharge Diagnosis (1) Schizophrenia: Start date: 04/08/20 Start time: 16:15 Status: Acute Asessment and Plan: Patient reevaluated by and deemed safe for discharge. She is well known to [facility] and has services there so she will be discharged back to community services. above case discussed with Dr. Tolentino who is in agreement. Discharge Plan Disposition Patient Disposition: HOME Condition: Stable Discharge Details Reason For Visit: SCHIZOPHRENIA,SUICIDAL IDEATION Admit Date/Time: 04/06/20 18:16 Admit Provider: Pawel Sweeney Attending Provider: Pawel Sweeney Primary Care Provider: Lexi Sahu Hospital Course Hospital Course: 39 y.o female with pmh schizophrenia off her medication admitted to [facility] after having thoughts of SI/HI. In the ED UDS found to have cocaine therefore she was admitted to the floor overnight on teley to be medically cleared. COVID was negative, she was medically cleared. While hospitalized she stated she had the feeling of skeletons in her body dancing around. She was reevaluated by after finding out she is services and connections to [facility]. They were contacted and she was found to be dischargeable to the community with follow up with her resources. Home Meds and New Rx's Prescriptions: No Action cyproheptadine 4 MG tablet 12 mg PO HS RF: 0 nicotine 21 MG/24 HR patch 24 hour 21 mg Transdermal DAILY RF: 0 lactase 3,000 UNIT tablet 9,000 unit PO TID RF: 0 albuterol sulfate [Proventil HFA] 200 PUFF/INH HFA aerosol inhaler 2 puff Inhalation Q4H PRN PRNRF: 0 lorazepam 1 mg tablet 1 mg PO TID RF: 0 aripiprazole 20 mg tablet 20 mg PO BID RF: 0 olanzapine 10 mg tablet 10 mg PO DAILY AM RF: 0 olanzapine 20 mg tablet 20 mg PO HS RF: 0 aripiprazole 10 mg tablet 10 mg PO DAILY AM RF: 0 omeprazole 20 MG capsule,delayed release(DR/EC) 20 mg PO DAILY RF: 0 Discharge Instructions Activity:: Activity as Tolerated Equipment/Supplies:: No Equipment Needed Diet:: As Tolerated Discharge Orders Discharge Orders: Discharge Order (Routine); Ordered 04/08/20 Ordered By: Jacki Foulke DS: Summary Status at Discharge Functional status at discharge: independent ambulation Overall status at discharge: patient is back to baseline Mental Status: other Speech and Movement: speech and movement normal Mood: congruent mood, labile mood and other Affect: normal affect Exam Narrative Exam Narrative: calm cooperative, continues to have scattered thoughts. HEENT atraumatic; neck supple; lungs clear; heart RRR; abdomen soft and NT; extremities w/o edema; neuro AAOx3, moves all 4s Psych Mental Status: other Speech and Movement: speech and movement normal Mood: congruent mood, labile mood and other Affect: normal affect DS: Data Vitals/I&O Vitals and I&O: Vital Signs Temperature 36.6 C 04/08/20 09:22 Temperature Source Tympanic 04/08/20 09:22 Pulse 84 04/08/20 09:22 Pulse Rhythm Regular 04/08/20 09:35 Respiratory Rate 18 04/08/20 09:22 Respiratory Effort Non-Labored 04/08/20 09:35 Respiratory Depth Normal 04/08/20 09:35 Respiratory Pattern Normal 04/08/20 09:35 Blood Pressure 107/71 04/08/20 09:22 Blood Pressure Position Sitting 04/06/20 14:29 Pulse Oximetry 98 04/08/20 09:22 Oxygen Delivery Method Room Air 04/08/20 09:22 Oxygen Flow Rate 0 04/08/20 09:22 Pain Level 4 04/08/20 14:11 Comment 04/07/20 05:00 Intake & Output 04/07/20 04/08/20 04/08/20 23:59 11:59 23:59 Intake Total 1440 / 1800 250 / 250 Output Total 1300 / 2100 800 / 2100 Balance 1440 / 1800 -1300 / -1850 -550 / -1850 Weight 103.7 kg Intake: Oral 1440 / 1800 250 / 250 Output: Urine 1300 / 2100 800 / 2100 Other: Urine Color Yellow Yellow Yellow Urine Appearance Clear Clear Urine Odor Normal Normal Comment voided in toilet, not measured. Voiding Methods Incontinent Toilet Toilet Data Completed and Pending Completed studies during hospitalization [Text1]: Exam(s) a RAD:XR portable chest AP EXAM: XR PORTABLE CHEST AP CLINICAL HISTORY: febrile TECHNIQUE: 2D digital imaging was performed. COMPARISON: No exams were available for comparison FINDINGS: LUNGS: Suboptimal pulmonary inflation. Minimal linear atelectasis or scarring the left lower lung field.. No pleural abnormality seen. HEART: Normal. MEDIASTINUM: Normal. OTHER FINDINGS: None. IMPRESSION: No acute pulmonary findings. [facility] Social History Smoking/Tobacco Use Status: Never Smoking risk assessment performed?: Yes Alcohol Intake: current Alcohol type: beer Drug use: Occasionally Substance use type: marijuana Do you feel safe in your relationship?: Yes Additional Social history: homeless History History Para 2 Hx # Term Pregnancies Multiple births Hx # Pregnancies Ectopic pregnancies AB induced Hx Number of Living Children AB spontaneous
--- NOTE | 2020-04-08 16:30 | CMPROGNOTE_ITS ---
- If Service Date Differs Date of service: 04/08/20 Time of Service: 16:30 Care Management Progress Note S/O: CM met with Liudmila at the bedside after contacting her LEAD RAMP AGENT supports at [facility]. Her Provider is at [facility] she has missed the last three appointments with him and has not had her medications since early February due to her failure to meet with her provider. Liudmila has a order for non hospitalization which CM confirmed with Araceli Zemple after a referral was sent, confirmed again with LEAD RAMP AGENT employment case manager Allyn Murphy at [facility] [phone]. Allyn reports that Liudmila does often seek hospitalization when she feels her medication is not working. She has been encouraged to meet with her provider regular to have her medications adjusted. She states she just has not been feeling well so did not go to see her provider. Liudmila is from [place] she states she came here to be placed in a motel by [employer]. She plans on returning back to [place] where she is from. Liudmila is requesting a taxi. She states the medications we are providing her are helping. CM informed her that as part of her plan through [facility] could not prescriber her new medications as she is has a contract with to be her only prescriber. [facility] did meet with Liudmila via telehealth Liudmila was agitated during her assessment with [facility], and expresses frustration with the mental health services. Mental health has discussed options with [facility] A: Liudmila is a 39 year old patient admitted with schizohrenia, SI P: Liudmila is being discharged, and cleared by mental health to resume services through LEAD RAMP AGENT at [facility]. ELBERT coordinated a taxi for her to be transported to [facility] as she requested. ELBERT provided her with contact information for [facility].
--- NOTE | 2020-04-08 16:30 | PDOC.CMPRO ---
- If Service Date Differs Date of service: 04/08/20 Time of Service: 16:30 Care Management Progress Note S/O: CM met with Liudmila at the bedside after contacting her MILKER MACHINE supports at [facility]. Her Provider is at [facility] she has missed the last three appointments with him and has not had her medications since early February due to her failure to meet with her provider. Liudmila has a order for non hospitalization which CM confirmed with Araceli Tolu after a referral was sent, confirmed again with MILKER MACHINE rn case management Allyn Murphy at [facility] [phone]. Allyn reports that Liudmila does often seek hospitalization when she feels her medication is not working. She has been encouraged to meet with her provider regular to have her medications adjusted. She states she just has not been feeling well so did not go to see her provider. Liudmila is from [place] she states she came here to be placed in a motel by [employer]. She plans on returning back to [place] where she is from. Liudmila is requesting a taxi. She states the medications we are providing her are helping. CM informed her that as part of her plan through [facility] could not prescriber her new medications as she is has a contract with to be her only prescriber. [facility] did meet with Liudmila via telehealth Liudmila was agitated during her assessment with [facility], and expresses frustration with the mental health services. Mental health has discussed options with [facility] A: Liudmila is a 39 year old patient admitted with schizohrenia, SI P: Liudmila is being discharged, and cleared by mental health to resume services through MILKER MACHINE at [facility]. ELBERT coordinated a taxi for her to be transported to [facility] as she requested. ELBERT provided her with contact information for [facility].
--- NOTE | 2020-04-09 10:24 | PDOC.MHCN_ITS ---
Date of service: 04/06/20 Time of Service: 16:10 Mental Health Crisis Note Presenting Issue How did you arrive at the ED and why did you come: Patient arrived at the ED due to command hallucinations telling her to kill herseelf. Precipitating Factors Patient stated that she has sever anxiety and hears voices telling her to kill herself. Patient stated she is having a mental break down and will if she does not get help Disposition BEHAVIOR: adgitated EYE CONTACT: poor MOOD: frusterated AFFECT: flat APPETITE: poor SLEEP(trouble falling/staying asleep: not sleeping well having dreams Plan Patient will remain at [facility] awaiting hospitalization for med management and stabilization. Referral has been sent to [facility] however they wont be reviewing until Wednesday. Signature Clinician's Name/Title: Srinivasa PARKER
--- NOTE | 2020-04-09 10:31 | PDOC.MHCN ---
Date of service: 04/07/20 Time of Service: 10:55 Mental Health Crisis Note Presenting Issue How did you arrive at the ED and why did you come: Patient arrived at the ED due to command hallucinations telling her to kill herself. Precipitating Factors Patient stated that she is still fighting the voices inside her, voices continue to command her.Patient shared that her anxiety has increased and her appetite has decreased. Patient shared that she was given Ativan to calm her down again today due to level of anxiety. Patient states that she is still having SI audio commands.Patient denies HI. Disposition BEHAVIOR: cooperative EYE CONTACT: okay MOOD: anxious AFFECT: flat APPETITE: poor SLEEP(trouble falling/staying asleep: not good Plan Patient will remain at [facility] awaiting referral review at [facility], still no open beds. Signature Clinician's Name/Title: Srinivasa PARKER
--- NOTE | 2020-04-09 11:14 | MHPN_ITS ---
Date of service: 04/08/20 Time of Service: 11:14 Mental Health Crisis Note Presenting Issue How did you arrive at the ED and why did you come: Liudmila arrived this past weekend reporting command hallucinations and SI. She has been waiting for a voluntary admission. Precipitating Factors Liudmila reported that she feels safe. Disposition BEHAVIOR: Liudmila is agitated and stated she wanted to leave but when she learned that she would not get any meds to leave she was stating that she did not want to leave then. She eventually did leave. This came [facility] both spoke with her team at [facility] who reported that she should not be hospitalized she seeks inpatient treatment all over the state and that she is very resourceful a nd has a team and her meds at [facility] and should be encouraged to go to them. 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 EYE CONTACT: Liudmila made fair eye contact until she was not happy with hearing she was not going to get a ride or her meds. MOOD: Mood is agitated with this clinician. AFFECT: Affect is unable to be read as she would not hold the phone to her face. APPETITE: Not assessed SLEEP(trouble falling/staying asleep: Not assessed Plan [facility] will provider her a ride to [place]. She will figure out what to d o from there. Signature Clinician's Name/Title: Samina Novak MS, [facility] Emergency Services Clinician
[2020-04-09 12:55] LABS: COVID-19 RT-PCR UVMMC Result Negative (Negative)
== END 2020-04-08 16:56 | disposition home or self-care (01) ==
LOC: ER 04-07 04:05 → MS 04-07 04:49
PROVIDERS: Emergency Medicine; Nurse Practitioner Family; Admitting Provider General Practice; Emergency Provider Emergency Medicine; PCP Nurse Practitioner Family; Visit Provider General Practice
DX: F20.9 Schizophrenia, unspecified (principal); Z91.14 Patient's other noncompliance with medication regimen; Z11.59 Encounter for screening for other viral diseases; R45.851 Suicidal ideations; F31.9 Bipolar disorder, unspecified; F43.10 Post-traumatic stress disorder, unspecified; F60.3 Borderline personality disorder
CPT/HCPCS: 36415; 80048; 80053; 80307; 81025; 84145; 87449; 90686; 93005; 94640; 99217; 99222; 99226; 99285; U0003; 71045; 80320; 80329; 81003; 84443; 85025; 93010; 99219; 99284; G0378; J3490

== ENCOUNTER 2020-04-09 19:17 | Emergency (ER) | payer MEDICAID, SELFPAY ==
--- NOTE | 2020-04-09 19:15 | W.ED.GENAD ---
Discharge Plan Disposition Patient Disposition: HOME Condition: Stable Discharge Details Clinical Impression: Bipolar disorder, Borderline personality disorder Primary Care Provider: Lexi Sahu ED Provider: Inez Russo Home Meds and New Rx's Prescriptions: Continued cyproheptadine 4 MG tablet 12 mg PO HS RF: 0 nicotine 21 MG/24 HR patch 24 hour 21 mg Transdermal DAILY RF: 0 lactase 3,000 UNIT tablet 9,000 unit PO TID RF: 0 albuterol sulfate [Proventil HFA] 200 PUFF/INH HFA aerosol inhaler 2 puff Inhalation Q4H PRN PRNRF: 0 lorazepam 1 mg tablet 1 mg PO TID RF: 0 aripiprazole 20 mg tablet 20 mg PO BID RF: 0 olanzapine 10 mg tablet 10 mg PO DAILY AM RF: 0 olanzapine 20 mg tablet 20 mg PO HS RF: 0 aripiprazole 10 mg tablet 10 mg PO DAILY AM RF: 0 omeprazole 20 MG capsule,delayed release(DR/EC) 20 mg PO DAILY RF: 0 Discharge Instructions Additional Instructions: Please continue with your current medication regimen. Please stay in close contact with your case sealer. Plan is for you to continue with [facility] on while there is a transition to mental health group locally. Please continue on your current regimen and seek care urgently if you develop suicidal ideations or other new or worsening symptoms. Referrals: Lexi Sahu [Primary Care Provider] - Medical Decision Making Patient is a 39-year-old female with past medical history significant for schizophrenia, bipolar, borderline personality disorder, presenting today with concern for increased auditory hallucinations. Patient is brought in via EMS. Patient was admitted over the weekend for the same. During that time, she had been having voices tell her to commit suicide. However, today she is reporting that they are more of a sexual nature. Patient is not overtly admitting or endorsing suicidal ideation or homicidal ideation. However, when she becomes frustrated she will say that if something does not change I will kill myself. She does not have a plan. Unclear where the patient has been staying. Sounds like she has been staying locally with a friend but that this will not be a long-term viable option for her. She states that she has not tried the medications that she has been using and feels that these need to be changed. Patient would like sedative. On exam, patient seems fairly appropriate. Nursing staff noted the patient to be speaking to internal stimuli but I did not witness this on my exam. Patient has good eye contact. She was agitated and would quickly become aggressive when not getting the medication she requested immediately. I am concerned about the patient's overall mental health she does not seem to be an imminent threat to herself or others. Will consult with mental health. Patient observer at bedside. Spoke with . They advised that the patient has been hospital shopping to get medications. She is not able to be hospitalized at [facility]. 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 They know her well. He advised that the patient has the highest possible help in the state for her mental health issues. He advised that the patient has been shopping for medications. Jia Pan is her case sealer. Dr. Samuel Darling is her psychiatrist. The provider will call back and speak with her. Jarred with [facility] [employer] spoke with the patient. She is not satisfied care that she is received from them, in particular the medication she had been prescribed. After speaking with Jarred the patient fired them. Spoke with care management regarding patient's disposition. Given concern for long-term care of this patient and making sure that she has set up with the appropriate mental health support system. She will attempt to find housing for the patient while I speak again with mental health locally. Mental health for [facility] as well as [facility] were able to discuss the case as both are work with the patient. Long-term, the patient would like to transition her care here. However, in the interim the patient does have extensive resources at her disposal in [facility] which will continue to be in place until she is able to transition from full-time. Both agencies were able to speak with the patient both together as well as one-on-one for psychiatric evaluation. At this time, the patient is reporting that she does have a place to stay for the evening with a friend. Our CT will be able to transfer her home. They do not feel that the patient is actively suicidal, this does fit with my initial assessment of the patient. Plan is for her to be able to return to home tomorrow as she does have extensive resources at her disposal there with further evaluation with psychiatry. Return precautions were discussed. All of her questions and concerns were addressed and she is in agreement this plan. HPI General Mode of arrival: EMS. Date/Time Provider Initiated Documentation: 04/09/20 19:31. Limitations to Documentation: no limitations. Information obtained by: patient, EMS, RN notes reviewed and old records reviewed. HPI Narrative: Patient is a 39 year old female with PMH signficant for schizophrenia, bipolar disorder, borderline personality disorer. She was hospitalized over the weekend for suicidal ideations. At that time, patient had reported being off of her meds for 2 weeks. She was dicharged home to [facility] where she has MH services after being cleared by mental health. Last time she was here, the voices were encouraging suicide. Tonight, they are talking about masturbation. Related Data Home Medications Medication Instructions Recorded Confirmed omeprazole 20 mg PO DAILY 06/28/16 04/07/20 cyproheptadine 12 mg PO HS 07/13/16 04/07/20 albuterol sulfate [Proventil HFA] 2 puff INHALATION Q4H PRN PRN 11/09/17 04/07/20 lactase 9,000 unit PO TID 11/09/17 04/07/20 nicotine 21 mg TRANSDERMAL DAILY 11/09/17 04/07/20 aripiprazole 10 mg PO DAILY AM 04/07/20 04/07/20 aripiprazole 20 mg PO BID 04/07/20 04/07/20 lorazepam 1 mg PO TID 04/07/20 04/07/20 olanzapine 10 mg PO DAILY AM 04/07/20 04/07/20 olanzapine 20 mg PO HS 04/07/20 04/07/20 Allergies Allergy/AdvReac Type Severity Reaction Status Date / Time Fish Containing Products Allergy Severe Swelling/Ed Unverified 04/06/20 14:34 ximena trazodone Allergy Unknown Other (See Unverified 04/09/20 19:17 Comment) General YAIR: 2 Review of Systems Constitutional Constitutional: Reports as per HPI, Denies chills, Denies fatigue, Denies fever(s), Denies headache(s) and Denies weakness Eyes Eyes: Denies change in vision ENT Ears, Nose, Mouth, and Throat: Denies headache(s) Cardiovascular Cardiovascular: Reports as per HPI, Denies chest pain, Denies lightheadedness, Denies dyspnea and Denies dyspnea on exertion Respiratory Respiratory: Reports as per HPI, Denies cough, Denies dyspnea and Denies dyspnea on exertion Gastrointestinal Gastrointestinal: Reports as per HPI, Denies abdominal pain, Denies change in bowel habits, Denies nausea and Denies vomiting Musculoskeletal Musculoskeletal: Denies abnormal gait Integumentary/Breasts Skin/Breast: Reports as per HPI and Denies rash Neurologic Neurologic: Denies abnormal movements, Denies abnormal speech, Denies abnormal gait, Denies headache(s), Denies paresthesias and Denies weakness Psychiatric Psychiatric: Reports as per HPI Endocrine Endocrine: Denies fatigue [facility] Social History Smoking/Tobacco Use Status: Never Smoking risk assessment performed?: Yes Alcohol Intake: current Alcohol type: beer Drug use: Occasionally Substance use type: marijuana Do you feel safe in your relationship?: Yes Additional Social history: homeless History History Para 2 Hx # Term Pregnancies Multiple births Hx # Pregnancies Ectopic pregnancies AB induced Hx Number of Living Children AB spontaneous Exam Const General: cooperative, healthy appearing, comfortable, no acute distress and well developed Nutritional Appearance: well nourished and overweight Orientation: alert, awake and oriented x3 Eyes General: appearance normal, both eyes and all related structures Resp Effort & Inspection: normal respiratory effort, able to speak in complete sentences and no respiratory distress Cardio Rate: regular rate Rhythm: regular rhythm Skin General skin exam: no rashes or lesions noted Trauma: no lacerations or abrasions Neuro General: patient alert and patient awake Cognition: normal cognition Speech: speech normal Gait: normal gait Psych Appearance: grossly normal Mental Status: mental status grossly normal Speech and Movement: agitated Mood: irritable mood Affect: hostile Attitude: cooperative Thought Process: normal Thought Content: normal Insight: limited Judgment: limited
[2020-04-09 19:17] VITALS: BP 115/70; PULSE 90; RESP 22; TEMP 36.3; O2SAT 100
--- NOTE | 2020-04-09 19:47 | NUR.NOTE ---
Nursing Note: Pt on video call with MH services and became angry, states that they are fired and no longer part of my life. Hung up on video chat and states she will no longer talk with them.
--- NOTE | 2020-04-09 19:51 | CMSP_ITS ---
- If Service Date Differs Date of service: 04/09/20 Time of Service: 19:51 Care Management Safety Plan Chief Complaint: Liudmila is a 39 year old female who presents in the emergency department for a psychiatric evaluation. Liudmila has an extensive psychiatric history and receives services through the ECONOMIC DEVELOPER program at [facility] ([facility]). Liudmila reports she is unhappy with her employment case manager at [facility] because the agency is her payee and her employment case manager refused to buy her a phone, so she fired [facility]. She subsequently came to [facility] to be with a male friend, but the two of them argued and now she cannot stay at his apartment. Liudmila denies suicidal or homicidal ideation but says she has nowhere to go and is here at [facility] seeking help because she needs psychiatric medications. CM will respond to ED to assess patient after patient has been medically cleared and assessed by screener. If screener deems patient meets criteria for psychiatric stabilization CM will facilitate interdepartmental huddle with [facility] screener for safety planning considerations and meet with patient to review [facility] policy and safety plan, establish individual wishes for treatment and maintain patient rights. In the interim; please note safety plan below to guide patient care while awaiting further assessment in the ED. SAFETY PLAN: 1. Will remain on suicide precautions and in paper clothes. 2. Will remain in room under direct supervision of one-on-one staff at all times provided by [employer], SOFTWARE DEVELOPMENT MANAGER, FORM DRAFTER picker operator. 3. May have paper cups, plates, finger foods as well as a cardboard spoon with which to eat meals. 4. Follow [facility] Management of the Admitted Behavioral Health Patient policy. 5. Comfort bath system only. 6. No personal belongings 7. Visitors: No visitors at this time. 8. Activities: Soft tip markers, paper, television if available, and other activities at nursing discretion. 8. No telephone privileges at this time. 9. Due to VOLUNTARY status, if patient wishes to leave [facility], the [facility] blade worker must be contacted to evaluate patient prior to patient exiting the building. If deemed appropriate for inpatient psychiatric care, safety plan will be established with patient, and care team, to adhere to patient goals, identify restrictions based on behavioral status, address nutrition, and determine allowed personal belongings, tools for hygiene and personal care. As well plan will determine level of activity including ambulation, level of supervision, visitors, and determine privileges based on level of acuity, behaviors and level of engagement by patient. DISPOSITION: After a zoom meeting between [facility], [facility], and Liudmila, the decision is made to discharge Liudmila from [facility], as she does not currently meet criteria for a voluntary psych hospitalization. Liudmila is returning to her friend's home for tonight via RCT to be arranged by CM. She will work with [facility] and [facility] in the morning to arrange for her return back to the [facility] area, where she will resume services with [facility].
--- NOTE | 2020-04-09 19:51 | PDOC.CMSAFED ---
- If Service Date Differs Date of service: 04/09/20 Time of Service: 19:51 Care Management Safety Plan Chief Complaint: Liudmila is a 39 year old female who presents in the emergency department for a psychiatric evaluation. Liudmila has an extensive psychiatric history and receives services through the FREIGHT COORDINATOR program at [facility] ([facility]). Liudmila reports she is unhappy with her caser shoe parts at [facility] because the agency is her payee and her caser shoe parts refused to buy her a phone, so she fired [facility]. She subsequently came to [facility] to be with a male friend, but the two of them argued and now she cannot stay at his apartment. Liudmila denies suicidal or homicidal ideation but says she has nowhere to go and is here at [facility] seeking help because she needs psychiatric medications. CM will respond to ED to assess patient after patient has been medically cleared and assessed by screener. If screener deems patient meets criteria for psychiatric stabilization CM will facilitate interdepartmental huddle with [facility] screener for safety planning considerations and meet with patient to review [facility] policy and safety plan, establish individual wishes for treatment and maintain patient rights. In the interim; please note safety plan below to guide patient care while awaiting further assessment in the ED. SAFETY PLAN: 1. Will remain on suicide precautions and in paper clothes. 2. Will remain in room under direct supervision of one-on-one staff at all times provided by [employer], PATTERNMAKER GRADER, DIRECTOR BIOMEDICAL ENGINEERING biscuit machine operator. 3. May have paper cups, plates, finger foods as well as a cardboard spoon with which to eat meals. 4. Follow [facility] Management of the Admitted Behavioral Health Patient policy. 5. Comfort bath system only. 6. No personal belongings 7. Visitors: No visitors at this time. 8. Activities: Soft tip markers, paper, television if available, and other activities at nursing discretion. 8. No telephone privileges at this time. 9. Due to VOLUNTARY status, if patient wishes to leave [facility], the [facility] chemical worker must be contacted to evaluate patient prior to patient exiting the building. If deemed appropriate for inpatient psychiatric care, safety plan will be established with patient, and care team, to adhere to patient goals, identify restrictions based on behavioral status, address nutrition, and determine allowed personal belongings, tools for hygiene and personal care. As well plan will determine level of activity including ambulation, level of supervision, visitors, and determine privileges based on level of acuity, behaviors and level of engagement by patient. DISPOSITION: After a zoom meeting between [facility], [facility], and Liudmila, the decision is made to discharge Liudmila from [facility], as she does not currently meet criteria for a voluntary psych hospitalization. Liudmila is returning to her friend's home for tonight via RCT to be arranged by CM. She will work with [facility] and [facility] in the morning to arrange for her return back to the [facility] area, where she will resume services with [facility].
--- NOTE | 2020-04-10 07:34 | PDOC.MHCN ---
Date of service: 04/09/20 Time of Service: 20:35 Mental Health Crisis Note Presenting Issue How did you arrive at the ED and why did you come: Patient arrived at [facility] due to voices in her head. Precipitating Factors Client started out sharing that she is unable to get her medications and her docotor wont see her, however the zoom meeting had [facility] and [facility] on with client and they shared that client has not been coming in for her appointments and that is why she does not have her medication. Client then got angry with screeners and stated that I'm not staying in the ER i need a cab Client stated I am safe for tonight, I just need a cab to get out of here. Client provided address for us and the healthcare liaison was going to contact [facility] and see about getting her a ride. Disposition BEHAVIOR: adgitated EYE CONTACT: okay MOOD: annoyed AFFECT: broad APPETITE: good SLEEP(trouble falling/staying asleep: okay Plan Client will get a RCT ride back to [place] where she can get her medications and work with her treatment team at [facility]. Signature Clinician's Name/Title: Srinivasa Man
== END 2020-04-09 22:18 | disposition home or self-care (01) ==
PROVIDERS: Emergency Provider Physician Assistant; PCP Nurse Practitioner Family
DX: F60.3 Borderline personality disorder (principal); F31.9 Bipolar disorder, unspecified; Z76.5 Malingerer [conscious simulation]; F20.9 Schizophrenia, unspecified
CPT/HCPCS: 81025; 99283

== ENCOUNTER 2020-04-10 11:54 | Emergency (ER) | payer MEDICAID, SELFPAY ==
[2020-04-10 11:57] VITALS: BP 126/86; PULSE 91; RESP 18; TEMP 36.7; O2SAT 100
--- NOTE | 2020-04-10 12:04 | ED.GENADUL_ITS ---
Discharge Plan Disposition Patient Disposition: HOME Condition: Stable Discharge Details Clinical Impression: Schizophrenia Primary Care Provider: Lexi Sahu ED Provider: Zeynep Chapin Home Meds and New Rx's Prescriptions: Continued cyproheptadine 4 MG tablet 12 mg PO HS RF: 0 nicotine 21 MG/24 HR patch 24 hour 21 mg Transdermal DAILY RF: 0 lactase 3,000 UNIT tablet 9,000 unit PO TID RF: 0 albuterol sulfate [Proventil HFA] 200 PUFF/INH HFA aerosol inhaler 2 puff Inhalation Q4H PRN PRNRF: 0 lorazepam 1 mg tablet 1 mg PO TID RF: 0 aripiprazole 20 mg tablet 20 mg PO BID RF: 0 olanzapine 10 mg tablet 10 mg PO DAILY AM RF: 0 olanzapine 20 mg tablet 20 mg PO HS RF: 0 aripiprazole 10 mg tablet 30 mg PO DAILY AM RF: 0 omeprazole 20 MG capsule,delayed release(DR/EC) 20 mg PO DAILY RF: 0 Discharge Instructions Instructions: Hallucinations (ED) Additional Instructions: Follow up with primary care provider in 3-5 days. Return to ED sooner if any worsening or concerns. Increase oral fluids. Follow up as directed by [facility]. Referrals: Lexi Sahu [Primary Care Provider] - Discharge Data Discharge Date/Time-TO BE ENTERED AT DEPARTURE: 04/10/20 15:21 Medical Decision Making 39-year-old female presents to the ER via EMS with chief complaint of auditory hallucinations. Patient was seen here yesterday and had mental health evaluation by [facility] and [facility]. She was transported back to the place where she is staying. She presents today requesting her medications. She is having an issue getting transportation back to her home. She denies any suicidal ideations or homicidal ideations. She states that she is hearing voices that are talking about beastiality, making people famous. She states that it is sick and disturbing. 1212: Patient is kicking the bed, appears to be yelling at the voices that she is hearing. Mental health evaluation ordered and CPS so ordered. Order placed for 10 mg olanzapine. 1334: Renee with case management [facility] patient back to her home.. Patient is complaining of a headache 500 mg of Tylenol ordered. She appears much more comfortable at this time. 1454: Hospital administration approved a taxi ride for transportation home. 1520: Taxicab on its way, patient transported via taxi back to [place]. HPI General Mode of arrival: EMS . Date/Time Provider Initiated Documentation: 04/10/20 11:55 . Limitations to Documentation: no limitations . Information obtained by: patient and EMS . HPI Narrative: 39-year-old female presents to the ER via EMS with chief complaint of auditory hallucinations. Patient was seen here yesterday and had mental health evaluation by [facility] and [facility]. She was transported back to the place where she is staying. She presents today requesting her medications. She is having an issue getting transportation back to her home. She denies any suicidal ideations or homicidal ideations. She states that she is hearing voices that are talking about beastiality, making people famous. She states that it is sick and disturbing. Related Data Home Medications Medication Instructions Recorded Confirmed omeprazole 20 mg PO DAILY 06/28/16 04/10/20 cyproheptadine 12 mg PO HS 07/13/16 04/10/20 albuterol sulfate [Proventil HFA] 2 puff INHALATION Q4H PRN PRN 11/09/17 04/10/20 lactase 9,000 unit PO TID 11/09/17 04/10/20 nicotine 21 mg TRANSDERMAL DAILY 11/09/17 04/10/20 aripiprazole 20 mg PO BID 04/07/20 04/10/20 aripiprazole 30 mg PO DAILY AM 04/07/20 04/10/20 lorazepam 1 mg PO TID 04/07/20 04/10/20 olanzapine 10 mg PO DAILY AM 04/07/20 04/10/20 olanzapine 20 mg PO HS 04/07/20 04/10/20 Allergies Allergy/AdvReac Type Severity Reaction Status Date / Time Fish Containing Products Allergy Severe Swelling/Ed Unverified 04/10/20 12:08 ximena trazodone Allergy Unknown Other (See Unverified 04/10/20 12:08 Comment) General YAIR: 2 Review of Systems Psychiatric Psychiatric: Reports irritability and Reports other (Auditory hallucinations) PFSH Social History Smoking/Tobacco Use Status: Current every day Tobacco Type: cigarettes Smoking risk assessment performed?: Yes Alcohol Intake: current Alcohol Intake frequency: a few times a week Alcohol type: beer and hard liquor Drug use: Occasionally Substance use type: marijuana Do you feel safe in your relationship?: Yes Additional Social history: homeless History History Para 2 Hx # Term Pregnancies Multiple births Hx # Pregnancies Ectopic pregnancies AB induced Hx Number of Living Children AB spontaneous Exam Narrative Exam Narrative: Constitutional: Alert and oriented x3. Appears stated age. Obese body habitus. Disheveled appears agitated. Head: Normocephalic, no trauma. Eyes: Pupils PERRLA, Red reflex noted, EOM's intact. Eyelids symmetrical without lesions, discharge, or swelling. ENT: Bilateral TM's WNL, External ear normal to inspection, no mastoid TTP, swelling, or erythema, Nasal turbinates WNL, no nasal discharge. Normal dentition, Posterior pharynx WNL, no exudate. Chest: RRR, Normal S1, S2, distal pulses intact. Resp: Lungs clear to auscultation bilaterally, no wheezes, rales, or rhonchi. Musculoskeletal: Normal gait, 5/5 strength to all four extremities. Skin: No suspicious rashes or lesions. Capillary refill less than 2 sec. Neurologic: Cranial nerves II-XII intact. Alert and oriented x 3. DTR's intact. Hematologic/Lymphatic: No ecchymosis, no lymphadenopathy. Psych Appearance: disheveled Speech and Movement: agitated and restless Mood: angry and irritable mood Affect: irritable affect Attitude: cooperative Thought Process: flight of ideas Thought Content: hallucinations auditory, no homicidality and suicidality Insight: limited Judgment: limited
[2020-04-10] MEDS: OLANZapine 10 MG TAB PO (12:21)
--- NOTE | 2020-04-10 14:31 | NUR.NOTE ---
Nursing Note: Renee from Case Management assisting patient to call the Medicaid Office in attempt to update her address with them.
--- NOTE | 2020-04-10 14:32 | PDOC.MHCN ---
Date of service: 04/10/20 Time of Service: 14:32 Mental Health Crisis Note Presenting Issue How did you arrive at the ED and why did you come: Liudmila arrived via ambulance after just being seen last night. Precipitating Factors Liudmila stated she is not feeling safe right now that is why she is here. I asked her if she would be safe if we were to find her a ride back to [facility] she said she would be and demanded she wanted her meds filled before she leaves. I informed her we would do what we can but I am not making any promises. Disposition BEHAVIOR: Liudmila is rude, disrespectful and entitled and clearly knows how to play the system. She would not even make eye contact with me stating Oh its her again? Nope! EYE CONTACT: None MOOD: Agitated and demanding and disrespectful. AFFECT: unable to assess. APPETITE: Unknown SLEEP(trouble falling/staying asleep: unknown Plan Care Management and Felicitas Encarnacion as well as this clinician coordinated with each other to figure out transportation for Liudmila back to [address] [place] [address]. Liudmila is calling Medicaid to change her address to [place] so that Medicaid will pay for this. I have spoken to [facility]'s automobile leasing supervisor, Kayleigh Joy as well as her fill in disability case manager, Majo Choudhury to inform them that Liudmila is coming back to the [place] area today. They will not fill her meds and will let their ER team know that she will likely come up over the holiday weekend. In the end Liudmila stated that Medicaid said they didn't have me in their system which was inaccurate and so therefore [facility] has decided to pay the [facility] to get her back to [place]. Signature Clinician's Name/Title: Samina Novak, MS, [facility] Emergency Services Clinician
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
== END 2020-04-10 15:21 | disposition home or self-care (01) ==
PROVIDERS: Emergency Provider Registered Nurse Emergency; PCP Nurse Practitioner Family
DX: R44.0 Auditory hallucinations (principal); F20.9 Schizophrenia, unspecified; R45.1 Restlessness and agitation
CPT/HCPCS: 99283

== ENCOUNTER 2020-09-27 09:02 | Observation (INO) | payer MEDICAID, SELFPAY ==
[2020-09-27 09:15] VITALS: BP 130/82; PULSE 88; RESP 16; TEMP 36.9; O2SAT 98
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
--- NOTE | 2020-09-27 09:44 | NUR.NOTE ---
Nursing Note: ER MD CALLED EMS TO GET MORE INFO ON PATIENT. PATIENT CALLED EMS HERSELF TO COM TO HOSPITAL. NO OTHER PERSONS IN THE APARTMENT. PATIENT CONTINUES TO NOT ANSWER QUESTIONS. UNABLE TO COMPLETE MED REC AT THIS TIME. LAB AT BEDSIDE. WILL CONTINUE TO TRY TO INTERACT WITH PATIENT AND GET PATIENT TO EXPLAIN WHY EMS WAS CALLED. PT STABLE. VSS. SKIN PWD. MOVES ALL EXT FREELY. CALM AND COOPERATIVE WITH LAB WORK. PT WAS WANDED BY SIDE STITCHER WHEN CHANGED INTO SCRUBS ON ARRIVAL. NO CONTRABAND FOUND ON PATIENT DURING WANDING.
[2020-09-27 09:56] LABS: Abs Immature Grans 0.02 10^3/uL (0.0-0.06); Absolute Basophil Count 0.03 10^3/uL (0.0-0.2); Absolute Eosinophil Count 0.04 10^3/uL (0.0-0.7); Absolute Lymphocyte Count 1.83 10^3/uL (1.2-3.4); Absolute Monocyte Count 0.36 10^3/uL (0.1-0.8); Absolute Neutrophil Count 5.84 10^3/uL (1.2-6.7); Basophils % 0.4; Eosinophils % 0.5; HCT 46.3 % (36.0-46.0); HGB 15.5 g/dL (11.2-15.7); Immature Grans % 0.2; Lymphocytes % 22.5; MCH 28.6 pg (27.0-33.0); MCHC 33.5 % (32.0-36.0); MCV 85.4 fL (80-95); MPV 10.3 fL (8.0-11.0); Monocytes % 4.4; Nucleated RBC 0 %; Platelet Count 193 10^3/uL (130-400); RBC 5.42 10^6/uL (3.93-5.22); RDW 11.7 % (11.7-14.6); RDW-SD 36.5 fL; WBC 8.12 10^3/uL (4.4-10.8)
[2020-09-27 10:12] LABS: Salicylate 4.9 mg/dL (<2.8)
[2020-09-27 10:15] LABS: Acetaminophen < 2 ug/mL (10-30)
[2020-09-27 10:20] LABS: ALT 33 U/L (14-59); AST 16 U/L (15-37); Albumin 3.7 g/dL (3.4-5.0); Alkaline Phosphatase 115 U/L (46-116); Anion Gap 10.5 mmol/L (3-11); BUN 11 mg/dL (7-18); Bilirubin, Total 0.2 mg/dL (0.2-1.0); CO2 25.5 mmol/L (21.0-32.0); CREATININE 0.8 mg/dL (0.55-1.02); Calcium 9.1 mg/dL (8.5-10.1); Chloride 107 mmol/L (98-107); ETHANOL BLOOD 3.2 mg/dL (<3); Glucose 113 mg/dL (74-106); Sodium 143 mmol/L (136-145); TSH (W/Ref FT4) 1.34 uIU/mL (0.36-3.74); Total Protein 7.4 g/dL (6.4-8.2)
--- NOTE | 2020-09-27 11:39 | PDOC.MHCN_ITS ---
Date of service: 09/27/20 Time of Service: 11:39 Mental Health Crisis Note Presenting Issue How did you arrive at the ED and why did you come: Pt arrived today via [facility] after she called for ambulance with complaints of auditory hallucinations and SI. Precipitating Factors Pt reported that she is having auditory hallucinations and they are telling her to kill herself but denied any HI. Disposition BEHAVIOR: Pt appeared to be sleeping upon arrival, if not was resting peacefully. She woke easily and then started to present as she was having auditory hallucinations i.e. eyes darting around and almost concentrating on what they were saying. She started to answer questions but had a delayed response in doing so. She became escalated when this clinician continued to ask questions and was yelling at this clinician. This clinician addressed this by setting limits as to what would be tolerated and that this clinician is trying to help however, an evlaution needs to be done. She was able to be more appropriate moving forward. EYE CONTACT: Eyes are darting around the room most of the time and other times good eye contact and connection. MOOD: Mood fluctuates throughout the assessment based on discussion and how she is feeling. AFFECT: Affect is angry and then flat but mostly flat. APPETITE: Pt reported complicated and could not elaborate on this. SLEEP(trouble falling/staying asleep: Pt reported piss poor. Plan This clinician called [facility] at [phone] and happened to be connected directly with the Pt's rn field case manager Jia. Jia reported that they have been working on an admission to [facility]. [facility] will fax their referral as well as a med list and last psych note so that [facility] and [facility] are on the same page with her team and referral. Pt will be reevaluated daily until placement is found as she is voluntarily willing to accept treatment. Alen completed with [facility] team and Pt to have minimal privileges today as she is not well known to us so that we can assess for safety. Once that can be assessed we will be able to discuss more privileges tomorrow. Signature Clinician's Name/Title: Samina Novak MS, [facility] Emergency Services Clinician, [facility]
--- NOTE | 2020-09-27 12:07 | CMSP_ITS ---
- If Service Date Differs Date of service: 09/27/20 Time of Service: 12:07 Care Management Safety Plan Status: Voluntary VOLUNTARY FOR INPATIENT PSYCHIATRIC STABILIZATION. Patient is appropriate in all interactions since arriving at [facility]; Pt has demonstrated appropriate coping and communication skills, has articulated his or her needs and concerns and is fully engaged during staff interactions. A huddle is done at noon with Carolee, nursing supervisor special effects, Dr. Dominguez, ED provider, NESHA Patel, Km, nail tech, Samina, [facility], and ELBERT Duran. Safety plan has been established with patient, and care team, to adhere to patient goals, identify restrictions based on behavioral status, address nutrition, and determine allowed personal belongings, tools for hygiene and personal care. Determine level of activity including ambulation, level of supervision, visitors, and determine privileges based on behaviors and level of engagement by pt. SAFETY PLAN: 1. Will remain on suicide precautions. In Paper Clothes 2. Will remain in room under direct supervision of one-on-one staff at all times provided by [employer], [employer], DISTRIBUTION CENTER ASSOCIATE forklift mechanic. 3. May have paper cups, plates, finger foods as well as a cardboard spoon with which to eat meals. 4. Follow [facility] Management of the Admitted Behavioral Health Patient policy. 5. Comfort bath system only. 6. No personal belongings 7. Visitors-No visitors at this time 8. Activities: Soft cart items, music tablet, television and remote if available, and other activities at RN discretion. 9. Bathroom privileges with escort while in the ED. May use bathroom without supervision on Med/Surg. 10. Phone: May use hospital phone for incoming and outgoing calls at RN discretion. 11. Due to VOLUNTARY status, if patient wishes to leave [facility], staff will contact [facility] Crisis Screener ([phone]) and On-Call Cooker [employer]oda ([phone]) as soon as possible. In the event of elopement, notify [facility] Police ([phone]). Patient is currently voluntarily at [facility] and seeking inpatient admission when a bed becomes available. [facility] Frontline Program Director [employer] will continue seeking placement. Please contact the Science Center Display Builder Cooker [employer] ([phone]) and [facility] Program Director [employer] ([phone]) for any needed changes in the Safety Plan. Safety plan has been provided to interdepartmental care team.
[2020-09-27 12:16] LABS: Source Nasal/Nares
[2020-09-27] MEDS: LORazepam 2 MG/ML VIAL IM (12:41)
[2020-09-27 13:40] LABS: Bilirubin Negative (Negative); Blood Negative (Negative); Clarity Sl Cloudy (Clear); Glucose Negative (Negative); Ketones Negative (Negative); Leukocyte Esterase Negative (Negative); Nitrite Negative (Negative); Urobilinogen 0.2 EU/dL (Up TO 0.2); pH 7.5 (5-8)
[2020-09-27 13:53] LABS: *AMPHETAMINES SCREEN URINE Negative (Negative); *BARBITURATES SCREEN URINE Negative (Negative); *BENZODIAZEPINES SCREEN URINE Negative (Negative); Cannabinoids THC Negative (Negative); Cocaine Screen,Urine Negative (Negative); METHADONE URINE SCREEN Negative (Negative); OPIATES URINE SCREEN Negative (Negative)
[2020-09-27 13:58] LABS: Tricyclic Antidepressants Negative (Negative)
[2020-09-27 16:29] LABS: COVID-19 PCR Negative (Negative)
--- NOTE | 2020-09-27 16:45 | PDOC.ERCMPRO ---
- If Service Date Differs Date of service: 09/27/20 Time of Service: 16:45 Care Management Progress Note S/O: Liudmila receives services through the [facility] at [facility]. She has diagnoses of record of Borderline Personality Disorder, Major Depressive Disorder, recurrent, and Substance Use Disorder. Liudmila presents in the ED via EMS due to suicidal ideation and auditory hallucinations. She is laying down with the bed sheet pulled over her head when CM comes to meet with her. She remains under the covers but answers questions asked of her. She states she is very tired and just wants to sleep. CM will continue to follow. A: Liudmila is a 40 year old female who comes to the ED via ambulance due to suicidal ideation. P: A referral is sent to [facility] for review. They do not have any available beds today. Liudmila will, therefore, remain at [facility] while [facility] continues to seek a voluntary placement for her. CM will continue to follow.
[2020-09-27 18:44] VITALS: BP 127/77; PULSE 87; RESP 18; TEMP 37.1; O2SAT 97
[2020-09-27] MEDS: Nicotine 7 MG/24 HR PATCH TD (20:25)
[2020-09-27] MEDS: OLANZapine 10 MG VIAL 7.5 MG IM (20:50)
[2020-09-28] MEDS: Acetaminophen 500 MG TAB 1000 MG PO (10:55)
[2020-09-28 13:52] VITALS: BP 96/61; PULSE 85; RESP 18; TEMP 36.4; O2SAT 96
[2020-09-28 14:50] VITALS: BP 96/61; PULSE 85; RESP 18; TEMP 36.4; O2SAT 96
[2020-09-28 15:03] VITALS: BP 106/70; PULSE 82; RESP 12; TEMP 36.9; O2SAT 96
[2020-09-28] MEDS: ARIPiprazole 5 MG TAB 10 MG PO (15:35)
--- NOTE | 2020-09-28 16:38 | HPE_ITS ---
Date of service: 09/28/20 Time of Service: 16:38 Assessment and Plan Assessment and plan (1) Suicidal ideation: Start date: 09/28/20 Start time: 16:49 Status: Acute Assessment and plan: Evaluated by . Made voluntary Not cooperative with evaluation or questioning. Only wanted to sleep Referral sent to [facility] 1:1 observer at this time continue safety measures discussed with Dr. Tolentino History of Present Illness History of Present Illness Chief Complaint: Psych eval Narrative: 40 y.o female with PMH of schizo, bipolar, borderline personality disorder, SI. Not quite cooperative with history. When asking about presentation she states not doing well. Does not answer if she continues to have any thought of SI or HI, just states I'm tired. Per ED note she did not answer any questions down there either. She was cleared by the ED and evaluated by and made voluntary. Ref erral to [place] sent. Hospitalists asked to admit to transition unit until bed available. She has a 1:1 safety observer. She was not very cooperative with assessment. Review of Systems All systems reviewed & are unremarkable except as noted in HPI and below PFSH Medical History Bipolar disorder Borderline personality disorder Schizophrenia Suicidal ideation Social History Smoking/Tobacco Use Status: Current every day Tobacco Type: cigarettes Smoking risk assessment performed?: Yes Alcohol Intake: current Alcohol Intake frequency: a few times a week Alcohol type: beer and hard liquor Drug use: Occasionally Substance use type: marijuana Do you feel safe in your relationship?: Yes Additional Social history: homeless History History Para 2 Hx # Term Pregnancies Multiple births Hx # Pregnancies Ectopic pregnancies AB induced Hx Number of Living Children AB spontaneous Meds Allergies and Home Medications Allergies Allergy/AdvReac Type Severity Reaction Status Date / Time Fish Containing Products Allergy Severe Swelling/Ed Unverified 09/27/20 18:06 ximena trazodone Allergy Unknown Other (See Unverified 09/27/20 18:06 Comment) Home Medications Medication Instructions Recorded Confirmed Type albuterol sulfate [Proventil HFA] 2 puff INHALATION Q4H PRN PRN 11/09/17 09/27/20 History aripiprazole 10 mg PO DAILY 04/07/20 09/27/20 History aripiprazole [Reenaliluciano Maindeysia] 300 mg IM QMONTH 09/27/20 09/27/20 History omeprazole 20 mg PO DAILY 09/27/20 09/27/20 History sumatriptan succinate 50 mg PO PRN PRN 09/27/20 09/27/20 History Exam Narrative Exam Narrative: Patient was not very cooperative. Laid on right side facing wall with back to me. She did allow for lungs and heart to be listened to. LSC, HR regular. NAD. She did not answer questions. Would not turn or cooperate further for exam, only wanted to sleep. unable to assess skin. Results Labs Result diagrams: 09/27/20 09:50 09/27/20 09:50 Last Vital Signs Temp 36.9 C 09/28/20 15:03 Pulse 82 09/28/20 15:03 Resp 12 09/28/20 15:03 BP 106/70 09/28/20 15:03 Pulse Ox 96 09/28/20 15:03 COVID-19 Screening Have you, or household traveled for leisure in last 14 days?: No Had IN PERSON contact w/suspected or confirmed C-19 person: No
[2020-09-28] MEDS: LORazepam 1 MG TAB 2 MG PO ×2 (18:23→20:33)
--- NOTE | 2020-09-28 18:57 | CMSP_ITS ---
- If Service Date Differs Date of service: 09/28/20 Time of Service: 18:57 Care Management Safety Plan Status: Voluntary VOLUNTARY FOR INPATIENT PSYCHIATRIC STABILIZATION. Patient is appropriate in all interactions since arriving at [facility]; Pt has demonstrated appropriate coping and communication skills, has articulated his or her needs and concerns . A decentralized huddle is done at 5pm with Carolee, nursing bonding supervisor, Keturah BOSWELL, TERENCE Singh and Vania RN Safety plan has been established with patient, and care team, to adhere to patient goals, identify restrictions based on behavioral status, address nutrition, and determine allowed personal belongings, tools for hygiene and personal care. Determine level of activity including ambulation, level of supervision, visitors, and determine privileges based on behaviors and level of engagement by pt. SAFETY PLAN: 1. Will remain on suicide precautions. In Paper Clothes 2. Will remain in room under direct supervision of one-on-one staff at all times provided by CPSO, VENECIA, SENIOR COMMISSARY AGENT information assurance analyst. 3. May have paper cups, plates, finger foods as well as a cardboard spoon with which to eat meals. 4. Follow [facility] Management of the Admitted Behavioral Health Patient policy. 5. May shower with supervision at nursing discretion. 6. No personal belongings 7. Visitors-No visitors at this time 8. Activities: Soft cart items, music tablet, television and remote if available , and other activities at nursing discretion. 9 May use bathroom without supervision. 10. Phone: May use hospital phone for incoming and outgoing calls at RN discretion. 11. Due to VOLUNTARY status, if patient wishes to leave [facility], staff will contact [facility] Crisis Screener ([phone]) and On-Call Paint Roller Cover Machine Setter ([phone]) as soon as possible. In the event of elopement, notify [place] [employer] ([phone]). Patient is currently voluntarily at [facility] and seeking inpatient admission when a bed becomes available. [facility] Frontline Policy Manager will continue seeking placement. Please contact the [employer] Supervisor Paint Roller Cover Machine Setter ([phone]) and [facility] Policy Manager ([phone]) for any needed changes in the Safety Plan. Safety plan has been provided to interdepartmental care team.
--- NOTE | 2020-09-28 18:57 | PDOC.CMSAFE ---
- If Service Date Differs Date of service: 09/28/20 Time of Service: 18:57 Care Management Safety Plan Status: Voluntary VOLUNTARY FOR INPATIENT PSYCHIATRIC STABILIZATION. Patient is appropriate in all interactions since arriving at [facility]; Pt has demonstrated appropriate coping and communication skills, has articulated his or her needs and concerns . A decentralized huddle is done at 5pm with Carolee, nursing city dispatch supervisor, Keturah BOSWLEL, TERENCE Singh and Vania RN Safety plan has been established with patient, and care team, to adhere to patient goals, identify restrictions based on behavioral status, address nutrition, and determine allowed personal belongings, tools for hygiene and personal care. Determine level of activity including ambulation, level of supervision, visitors, and determine privileges based on behaviors and level of engagement by pt. SAFETY PLAN: 1. Will remain on suicide precautions. In Paper Clothes 2. Will remain in room under direct supervision of one-on-one staff at all times provided by CPSO, VENECIA, CODIFIER spiritual care coordinator. 3. May have paper cups, plates, finger foods as well as a cardboard spoon with which to eat meals. 4. Follow [facility] Management of the Admitted Behavioral Health Patient policy. 5. May shower with supervision at nursing discretion. 6. No personal belongings 7. Visitors-No visitors at this time 8. Activities: Soft cart items, music tablet, television and remote if available, and other activities at nursing discretion. 9 May use bathroom without supervision. 10. Phone: May use hospital phone for incoming and outgoing calls at RN discretion. 11. Due to VOLUNTARY status, if patient wishes to leave [facility], staff will contact [facility] Crisis Screener ([phone]) and On-Call Nuclear Control Operator ([phone]) as soon as possible. In the event of elopement, notify [place] [employer] ([phone]). Patient is currently voluntarily at [facility] and seeking inpatient admission when a bed becomes available. [facility] Frontline Clinical Education Assistant will continue seeking placement. Please contact the Comptroller Nuclear Control Operator ([phone]) and [facility] Clinical Education Assistant ([phone]) for any needed changes in the Safety Plan. Safety plan has been provided to interdepartmental care team.
[2020-09-29] MEDS: Omeprazole 20 MG CAPCR PO (07:39)
[2020-09-29] MEDS: ARIPiprazole 5 MG TAB 10 MG PO (07:39)
[2020-09-29 07:47] VITALS: BP 125/79; PULSE 89; RESP 17; TEMP 36.9; O2SAT 96
--- NOTE | 2020-09-29 10:39 | NUR.NOTE ---
Nursing Note: At 0740 on 09/29/20, this RN entered the pt.'s room to administer medications to the pt. and to perform a head to toe assessment and suicide risk assessment on the pt. Pt. allowed the RN to do these things and made appropriate eye contact when addressed. Pt. states that they are feeling depressed/down/sad. Pt. states, I just miss my kids and I'm just sad about this whole situation. I hate feeling this way. Pt. states, My head just feels out of focus. Pt. states that she is having auditory hallucinations, but denies visual hallucinations. Pt. states, The voices make me do things like twist my neck back and forth, that I don't like to do. Pt. states, I have to keep telling them to stop. I just get so agitated with them. Pt. states, The voices are usually quiet in the morning though, which I like, especially if I wake up slowly. Pt. states that the voices keep talking to her about getting her , making her carry their baby, etc. Pt. states that these thoughts are very frustrating for her and that she is ...too depressed. Too fed up. Too tired. Pt. denies any suicidal ideations or plans at this time. Pt. denies any homicidal ideations or plans. Pt. agrees to inform the CPSO and RN if these feelings/thoughts worsen, so that their safety can be maintained. RN will reassess as necessary.
--- NOTE | 2020-09-29 11:32 | W.PM.DS.N ---
Date of service: 09/29/20 Time of Service: :33 DS: Diagnosis Discharge Diagnosis (1) Suicidal ideation: Start date: 09/29/20 Start time: :33 Status: Acute Asessment and Plan: When asked how feeling she shrugs shoulders and states you know does not directly answer any questions. Call received from from Dr. Angelia Muro. She is well known to [place] and has been accepted for admission. She has asked for something for anxiety. Will give IM valium given the longer lasting effect vs ativan. She is agreeable. discussed with Dr. Tolentino Discharge Plan Disposition Patient Disposition: [facility] Condition: Stable Discharge Details Reason For Visit: suicidal ideation Admit Date/Time: 09/28/20 14:11 Admit Provider: Chino Tolentino Attending Provider: Chino Tolentino Primary Care Provider: Lexi Sahu Hospital Course Hospital Course: 40 y.o female with PMH of schizo, bipolar, borderline personality disorder, SI. Admitted for voluntary placement after being evaluated by . Medically cleared. Not quite cooperative with history. When asking about presentation she shrugs shoulders and says just stuff, you know. Does not answer if she continues to have any thought of SI or HI, just states, can I have something for anxiety. She does appear anxious. No direct questions answered. She has been accepted to [facility]. Awaiting bed placement at this time. Accepting Dr. Muro. Home Meds and New Rx's Prescriptions: Continued albuterol sulfate [Proventil HFA] 200 PUFF/INH HFA aerosol inhaler 2 puff Inhalation Q4H PRN PRNRF: 0 aripiprazole 20 mg tablet 10 mg PO DAILY RF: 0 Abilify Maintena 300 mg suspension,extended rel recon 300 mg IM QMONTH RF: 0 sumatriptan succinate 50 mg tablet 50 mg PO PRN PRNRF: 0 omeprazole 20 mg capsule,delayed release(DR/EC) 20 mg PO DAILY RF: 0 Discharge Instructions Activity:: Activity as Tolerated Equipment/Supplies:: No Equipment Needed Diet:: As Tolerated Discharge Orders Discharge Orders: Discharge Order (Routine); Ordered 09/29/20 Ordered By: Jacki Day DS: Summary Time Spent with Patient providing and/or coordinating discharge services: Less than 30 minutes Status at Discharge Functional status at discharge: independent ambulation Overall status at discharge: patient is not back to baseline Mental Status: other Speech and Movement: restless Mood: anxious mood and other Affect: anxious affect Exam Narrative Exam Narrative: Patient was not very cooperative. Laid on back facing ceiling. She did allow for lungs and heart to be listened to. LSC, HR regular. NAD. She did not answer questions. Would not turn or cooperate further for exam, only wanted to sleep. unable to assess skin as she kept herself covered with a blanket. Psych Mental Status: other Speech and Movement: restless Mood: anxious mood and other Affect: anxious affect DS: Data Vitals/I&O Vitals and I&O: Vital Signs Temperature 36.9 C 09/29/20 07:47 Temperature Source Temporal Artery Scan 09/29/20 07:47 Pulse 89 09/29/20 07:47 Respiratory Rate 17 09/29/20 07:47 Respiratory Effort Non-Labored 09/29/20 02:36 Respiratory Depth Normal 09/29/20 02:36 Respiratory Pattern Normal 09/29/20 02:36 Blood Pressure 125/79 09/29/20 07:47 Pulse Oximetry 96 09/29/20 07:47 Oxygen Delivery Method Room Air 09/29/20 07:47 Oxygen Flow Rate 0 09/29/20 07:47 Pain Level 0 09/29/20 07:47 Comment 09/29/20 07:40 Intake & Output 09/28/20 09/28/20 09/29/20 11:59 23:59 11:59 Intake Total 720 / 720 690 / 690 Balance 720 / 720 690 / 690 Intake: Oral 720 / 720 690 / 690 Other: Comment Per pt. report, void x1 in the toilet. Voiding Methods Toilet Toilet [facility] Medical History Bipolar disorder Borderline personality disorder Schizophrenia Suicidal ideation Social History Smoking/Tobacco Use Status: Current every day Tobacco Type: cigarettes Smoking risk assessment performed?: Yes Alcohol Intake: current Alcohol Intake frequency: a few times a week Alcohol type: beer and hard liquor Drug use: Occasionally Substance use type: marijuana Do you feel safe in your relationship?: Yes Additional Social history: homeless History History Para 2 Hx # Term Pregnancies Multiple births Hx # Pregnancies Ectopic pregnancies AB induced Hx Number of Living Children AB spontaneous
--- NOTE | 2020-09-29 11:35 | NUR.NOTE ---
Nursing Note: At 1125 on 09/29/20, this RN answered a call from [facility], and gave a nurse to nurse report on the pt. to NESHA Allen (sp?). [facility] RN was updated regarding the pt.'s mentation, VS, pain level, head to toe assessment, suicide risk assessment, medications administered, plan of care, etc. [facility] RN verbalized understanding and presented with a few questions that were answered. EMAR to be faxed down per their request. Pt. to be transported to [facility] for a 1600 arrival time per their request. Charge nurse notified so that transport can be arranged. RN will reassess as necessary.
[2020-09-29] MEDS: diazePAM 10 MG/2 ML SYR 5 MG IM (11:56)
[2020-09-29] MEDS: LORazepam 1 MG TAB 2 MG PO (12:53)
[2020-09-29] MEDS: diazePAM 10 MG/2 ML SYR IM (12:59)
[2020-09-29] MEDS: Acetaminophen 325 MG TAB 650 MG PO (16:37)
--- NOTE | 2020-09-29 18:51 | CMDISCH_ITS ---
- If Service Date Differs Date of service: 09/29/20 Time of Service: 18:51 LACE Index Scoring Tool - Questions: Length of Stay (in days): 1 Acuity (Admit via E.D.?): Yes E.D. Visits: 4 - Answers: Total Score: 8 Risk of Readmission: Low Risk Care Management Discharge Reason for Hospitalization: SI Discharge Plan: Liudmila will be transferred to [facility]. She will transport via [facility] department. Patient/Family Education Needs: To be determind by facility and their provider. Services Needed at Discharge: Psychiatric Facility
== END 2020-09-29 17:17 | disposition short-term general hospital (02) ==
LOC: ER 09-28 14:16 → MS 09-29 11:12
PROVIDERS: Admitting Provider Internal Medicine; Emergency Provider Emergency Medicine; PCP Nurse Practitioner Family; Visit Provider Internal Medicine
DX: F31.9 Bipolar disorder, unspecified (principal); R45.851 Suicidal ideations; F60.3 Borderline personality disorder; F20.9 Schizophrenia, unspecified; Z79.899 Other long term (current) drug therapy; F17.210 Nicotine dependence, cigarettes, uncomplicated; Z59.0 Homelessness
CPT/HCPCS: 36415; 80053; 80307; 81025; 87635; 96372; 99285; 80320; 80329; 81003; 84443; 85025; 99217; 99219; 99284; G0378; J2060; J3360